=== PATIENT | female | born 1980 | race Two or more races ===

== ENCOUNTER 2016-07-01 12:25 | Outpatient (CLI) | payer MEDICAID ==
[2016-07-01 12:54] LABS: APPEARANCE,URINE SLIGHTLY-CLOUDY; BILIRUBIN,URINE NEGATIVE (NEGATIVE); GLUCOSE, URINE NEGATIVE (NEGATIVE); KETONES,URINE NEGATIVE (NEGATIVE); LEUKOCYTE ESTERASE,URINE NEGATIVE (NEGATIVE); NITRITE,URINE NEGATIVE (NEGATIVE); PROTEIN,URINE NEGATIVE (NEGATIVE); UROBILINOGEN,URINE NEGATIVE mg/dL (<2.0)
[2016-07-01 13:15] LABS: URINE BARBITURATES SCREEN NEGATIVE; URINE METHADONE SCREEN NEGATIVE; URINE PHENCYCLIDINE SCREEN NEGATIVE
--- NOTE | 2016-07-01 14:14 | Non Stress Test Report ---
Non Stress Test Datetime Report Generated by CPN: 07/01/2016 14:13 DEMOGRAPHIC EGA NST: 36.2 EGA NST: 33.1 INDICATION Indication for Study: Ordered by Provider Indication for Study: Ordered by Provider MONITORING Monitor Explained: Monitor Explained; Test Explained; Patient Verbalized Understanding Monitor Explained: Monitor Explained; Test Explained; Patient Verbalized Understanding Time on Monitor: 07/01/2016 12:42 Time on Monitor: 06/09/2016 13:12 Time off Monitor: 07/01/2016 14:05 NST Duration: 83 NST INTERVENTIONS NST Interventions: None NST Interventions: PO Hydration; IV Fluids Physician Notified NST: Morataya CNM Physician Notified NST: A Emmel BABY A: [id number] BABY A Movement : Present Movement : Present Contraction Frequency : irregular FHR Baseline : 135 Accelerations : 15X15 Accelerations : 15X15 Decelerations : None Decelerations : None Variability : Moderate 6-25bpm Variability : Moderate 6-25bpm NST Review: Meets Criteria for Reactive NST NST Review: Meets Criteria for Reactive NST NST Review and Verified By : Donald Oh RN NST Review and Verified By : Donnell Livingston RN NST Results: Reactive NST Results: Reactive NST COMMENTS NST Comments: See VS flowsheet NST REPORT Report Trigger: Send Report
== END 2016-07-01 14:13 | disposition home or self-care (01) ==
LOC: LC 12:25
PROVIDERS: ATTEND Obstetrics & Gynecology
PROC: 4A1HXCZ Monitoring of Products of Conception, Cardiac Rate, External Approach (ICD-10-PCS; principal; 2016-07-01)
DX: Z34.93 Encounter for supervision of normal pregnancy, unspecified, third trimester (principal); Z3A.36 36 weeks gestation of pregnancy
CPT/HCPCS: 59025; 80307; 81001

== ENCOUNTER 2016-07-08 13:33 | Outpatient (CLI) | payer MEDICAID ==
[2016-07-08 14:34] LABS: ABSOLUTE EOSINOPHILS # (AUTO) 0.2 10^3/uL (0.0-0.6); ABSOLUTE LYMPHOCYTES (AUTO) 1.5 10^3/uL (0.5-4.7); ABSOLUTE MONOCYTES (AUTO) 0.7 10^3/uL (0.1-1.4); ABSOLUTE NEUT (AUTO) 8.9 10^3/uL (1.7-8.2); BASOPHILS % (AUTO) 0.4 % (0-2); EOSINOPHILS % (AUTO) 1.7 % (0-6); HEMATOCRIT 32.9 % (36.0-47.0); HEMOGLOBIN 10.3 g/dL (12.0-15.5); LYMPHOCYTES % (AUTO) 13.4 % (13-45); MEAN CORPUSCULAR HGB CONC 31.2 g/dL (32.0-36.0); MEAN CORPUSCULAR VOLUME 80 fl (80-97); MONOCYTES % (AUTO) 6.2 % (3-13); RED BLOOD COUNT 4.11 10^6/uL (3.72-5.28); RED CELL DISTRIBUTION WIDTH 15.5 % (11.5-14.0); SEGMENTED NEUTROPHILS % (AUTO) 78.3 % (42-78); WHITE BLOOD COUNT 11.3 10^3/uL (4.0-10.5)
[2016-07-08 14:56] LABS: APPEARANCE,URINE SLIGHTLY-CLOUDY; BILIRUBIN,URINE NEGATIVE (NEGATIVE); GLUCOSE, URINE NEGATIVE (NEGATIVE); KETONES,URINE NEGATIVE (NEGATIVE); LEUKOCYTE ESTERASE,URINE NEGATIVE (NEGATIVE); NITRITE,URINE NEGATIVE (NEGATIVE); PROTEIN,URINE NEGATIVE (NEGATIVE); URINE SPECIFIC GRAVITY 1.011; UROBILINOGEN,URINE NEGATIVE mg/dL (<2.0)
[2016-07-08 15:08] LABS: ALANINE AMINOTRANSFERASE 24 U/L (9-52); ALBUMIN 3.1 g/dL (3.5-5.0); ALKALINE PHOSPHATASE 147 U/L (38-126); ANION GAP 8 (5-19); ASPARTATE AMINO TRANSFERASE 18 U/L (14-36); BILIRUBIN,TOTAL 0.3 mg/dL (0.2-1.3); BLOOD UREA NITROGEN 10 mg/dL (7-20); CALCIUM 9.1 mg/dL (8.4-10.2); CARBON DIOXIDE 20 mmol/L (22-30); CHLORIDE 109 mmol/L (98-107); CREATININE RESULT 0.51 mg/dL (0.52-1.25); GLUCOSE 86 mg/dL (75-110); LDH 431 U/L (313-618); SODIUM 137.4 mmol/L (137-145); URIC ACID 4.2 mg/dL (2.5-7.0)
[2016-07-08 15:29] LABS: URINE BARBITURATES SCREEN NEGATIVE; URINE METHADONE SCREEN NEGATIVE; URINE PHENCYCLIDINE SCREEN NEGATIVE
== END 2016-07-08 15:27 | disposition home or self-care (01) ==
LOC: LC 13:33
PROVIDERS: ATTEND Obstetrics & Gynecology
PROC: 4A1HXCZ Monitoring of Products of Conception, Cardiac Rate, External Approach (ICD-10-PCS; principal; 2016-07-08)
DX: Z34.93 Encounter for supervision of normal pregnancy, unspecified, third trimester (principal); Z3A.37 37 weeks gestation of pregnancy
CPT/HCPCS: 36415; 59025; 80053; 80307; 81001; 83615; 84550; 85025

== ENCOUNTER 2016-07-12 07:14 | Inpatient (IN) | payer MEDICAID ==
[2016-07-12] MEDS ORDERED: RINGERS SOLUTION,LACTATED 1,000 ML IV PRN (07:58)
[2016-07-12] MEDS ORDERED: RINGERS SOLUTION,LACTATED 1,000 ML IV ONE (07:58)
--- NOTE | 2016-07-12 08:01 | L&D Flow Sheet ---
LD Flowsheet Datetime Report Generated by CPN: 07/12/2016 08:00 Datetime: 07/12/2016 07:36 Dilatation (cm): 3.0 (Sylvie Christiane, RN) Effacement (%): 80 (Sylvie Christiane, RN) Station: 0 (Sylvie Christiane, RN) Exam by: A. Christiane RN (Sylvie Christiane, RN) Datetime: 07/12/2016 07:35 Frequency (min): 4-5 (Elisabet Bellavance, RNC) Vaginal Bleeding: None (Elisabet Bellavance, RNC) Level of Consciousness: Fully Conscious (Elisabet Bellavance, RNC) DTR's/Clonus: DTRs 2+; No Clonus (Elisabet Bellavance, RNC) Headache: Denies (Elisabet Bellavance, RNC) Breath Sounds, Left: Clear and Equal (Elisabet Bellavance, RNC) Breath Sounds, Right: Clear and Equal (Elisabet Bellavance, RNC) Nausea/Vomiting: Denies (Elisabet Bellavance, RNC) RUQ Epigastric Pain: Denies (Elisabet Bellavance, RNC) Datetime: 07/12/2016 07:34 IV/Blood Work: IV Started (Mike Oh RN) Patient Care Comments: 18G Started R forearm, good blood return, site wnl, IV infuses well LR (Mike Oh RN) Datetime: 07/12/2016 07:31 NBP Sys/Adela/Mean (mmHg): 126 (QS system process) : 85 (QS system process) : 101 (QS system process) Pulse: 89 (QS system process) LaborFlag: Antepartum (QS system process)
[2016-07-12 08:45] LABS: HEMOGLOBIN 10.6 g/dL (12.0-15.5); HGB HCT DIFFERENCE -2.2; MEAN CORPUSCULAR HEMOGLOBIN 24.7 pg (27.0-33.4); MEAN CORPUSCULAR HGB CONC 31.2 g/dL (32.0-36.0); MEAN CORPUSCULAR VOLUME 79 fl (80-97); RED CELL DISTRIBUTION WIDTH 15.9 % (11.5-14.0); WHITE BLOOD COUNT 13.8 10^3/uL (4.0-10.5)
[2016-07-12 09:08] LABS: ANISOCYTOSIS SLIGHT; BAND NEUTROPHILS % (MANUAL) 1 % (3-5); BASOPHILS % (MANUAL) 0 % (0-2); EOSINOPHILS % (MANUAL) 1 % (0-6); LYMPHOCYTES % (MANUAL) 12 % (13-45); MICROCYTOSIS SLIGHT; OVALOCYTES SLIGHT; POIKILOCYTOSIS SLIGHT; POLYCHROMASIA SLIGHT; TOTAL CELLS COUNTED 100
[2016-07-12] MEDS ORDERED: EPHEDRINE SULFATE INJ 50 MG/1 ML AMPULE ONE (09:11)
[2016-07-12] MEDS ORDERED: FENTANYL/BUPIVACAINE/NS/PF 200 MCG/100 ML RTUINJ EPI ONE (09:11)
[2016-07-12] MEDS ORDERED: BUPIVACAINE HCL 0.25 % INJ/PF (2.5 MG/1 ML) 30 ML VIAL ONE (09:12)
[2016-07-12] MEDS ORDERED: MISOPROSTOL 0.2 MG TABLET ONE (10:37)
[2016-07-12] MEDS ORDERED: OXYTOCIN/NORMAL SALINE 20 UNIT/1,000 ML RTUINJ ONE (10:37)
[2016-07-12] MEDS ORDERED: LIDOCAINE 1% INJ-PF (10 MG/ML) 30 ML SDV ONE (10:37)
--- NOTE | 2016-07-12 12:00 | L&D Flow Sheet ---
LD Flowsheet Datetime Report Generated by CPN: 07/12/2016 12:00 Datetime: 07/12/2016 11:58 NBP Sys/Adela/Mean (mmHg): 128 (QS system process) : 72 (QS system process) : 93 (QS system process) Pulse: 102 (QS system process) LaborFlag: Antepartum (QS system process) Datetime: 07/12/2016 11:43 NBP Sys/Adela/Mean (mmHg): 121 (QS system process) : 58 (QS system process) : 84 (QS system process) Pulse: 92 (QS system process) LaborFlag: Antepartum (QS system process) Datetime: 07/12/2016 11:35 Respirations: 17 (Sylvie Christiane, RN) Pain Scale: 0 (Sylvie Christiane, RN) Pain Presence: None/Denies (Sylvie Christiane, RN) Pain Type: N/A (Sylvie Christiane, RN) LaborFlag: Antepartum (QS system process) Datetime: 07/12/2016 11:28 NBP Sys/Adela/Mean (mmHg): 142 (QS system process) : 68 (QS system process) : 98 (QS system process) Pulse: 92 (QS system process) LaborFlag: Antepartum (QS system process) Datetime: 07/12/2016 11:20 Respirations: 17 (Sylvie Christiane, RN) Pain Scale: 0 (Sylvie Christiane, RN) Pain Presence: None/Denies (Sylvie Christiane, RN) Pain Type: N/A (Sylvie Christiane, RN) LaborFlag: Antepartum (QS system process) Datetime: 07/12/2016 11:13 NBP Sys/Adela/Mean (mmHg): 126 (QS system process) : 67 (QS system process) : 90 (QS system process) Pulse: 99 (QS system process) LaborFlag: Antepartum (QS system process) Datetime: 07/12/2016 11:05 Respirations: 17 (Sylvie Christiane, RN) Temperature (F): 98.3 (Sylvie Christiane, RN) Temperature (C): 36.8 (QS system process) Pain Scale: 0 (Sylvie Christiane, RN) Pain Presence: None/Denies (Sylvie Christiane, RN) Pain Type: N/A (Sylvie Christiane, RN) LaborFlag: Antepartum (QS system process) Datetime: 07/12/2016 10:58 NBP Sys/Adela/Mean (mmHg): 119 (QS system process) : 67 (QS system process) : 87 (QS system process) Pulse: 99 (QS system process) LaborFlag: Antepartum (QS system process) Datetime: 07/12/2016 10:50 Respirations: 16 (Sylvie Christiane, RN) Pain Scale: 0 (Sylvie Christiane, RN) Pain Presence: None/Denies (Sylvie Christiane, RN) LaborFlag: Antepartum (QS system process) Datetime: 07/12/2016 10:43 NBP Sys/Adela/Mean (mmHg): 118 (QS system process) : 69 (QS system process) : 88 (QS system process) Pulse: 118 (QS system process) LaborFlag: Antepartum (QS system process) Datetime: 07/12/2016 10:36 Pushing: Urge to Push (Sylvie Grande RN) Pushing Position: Pushing with Contractions (Sylvie Grande RN) Pushing Progress: Descent with Pushing (Sylvie Grande, RN) Datetime: 07/12/2016 10:33 Dilatation (cm): 10.0 (Sylvie Grande RN) Effacement (%): 100 (Sylvie Grande RN) Station: 0 (Sylvie Grande RN) Exam by: A. Emmel CNM (Sylvie Christiane, RN) Datetime: 07/12/2016 10:30 NBP Sys/Adela/Mean (mmHg): 120 (QS system process) : 67 (QS system process) : 87 (QS system process) Pulse: 96 (QS system process) LaborFlag: Antepartum (QS system process) Datetime: 07/12/2016 10:29 Patient Position/Activity: Left Lateral (Sylvie Christiane, RN) Datetime: 07/12/2016 10:15 Patient Position/Activity: Right Lateral (Sylvie Christiane, RN) Datetime: 07/12/2016 10:14 NBP Sys/Adela/Mean (mmHg): 117 (QS system process) : 68 (QS system process) : 87 (QS system process) Pulse: 90 (QS system process) LaborFlag: Antepartum (QS system process) Datetime: 07/12/2016 09:59 NBP Sys/Adela/Mean (mmHg): 120 (QS system process) : 72 (QS system process) : 93 (QS system process) Pulse: 91 (QS system process) LaborFlag: Antepartum (QS system process) Datetime: 07/12/2016 09:53 Patient Position/Activity: Left Extreme (Sylvie Christiane, RN) Communication: RN at Bedside (Sylvie Christiane, RN) Datetime: 07/12/2016 09:45 Monitor Mode: External; Palpation (Sylvie Christiane, RN) Frequency (min): 2-3 (Sylvie Christiane, RN) Quality: Moderate to Strong (Sylvie Christiane, RN) Duration (sec): 60-90 (Sylvie Christiane, RN) Resting Tone (Palpate): Relaxed (Sylvie Christiane, RN) Monitor Mode: External US (Sylvie Christiane, RN) FHR Baseline Rate : 140 (Sylvie Christiane, RN) Variability: Minimal - Undetectable to <=5 bpm (Sylvie Christiane, RN) Accelerations: None (Sylvie Christiane, RN) Decelerations: Early (Sylvie Christiane, RN) Datetime: 07/12/2016 09:43 NBP Sys/Adela/Mean (mmHg): 107 (QS system process) : 60 (QS system process) : 79 (QS system process) Pulse: 97 (QS system process) Pain Scale: 1 (Sylvie Grande RN) Pain Presence: Intermittent (Sylvie Grande RN) Pain Type: Contraction (Sylvie Grande RN) Pain Relief Measures: Epidural Given (Sylvie Gradne RN) LaborFlag: Antepartum (QS system process) Datetime: 07/12/2016 09:41 NBP Sys/Adela/Mean (mmHg): 113 (QS system process) : 67 (QS system process) : 85 (QS system process) LaborFlag: Antepartum (QS system process) Datetime: 07/12/2016 09:40 NBP Sys/Adela/Mean (mmHg): 119 (QS system process) : 64 (QS system process) : 85 (QS system process) Pulse: 96 (QS system process) I/O Interventions: Whitt Cath Inserted (Sylvie Grande RN) Patient Care Comments: draining clear yellow urine without difficulty, pt tolerated procedure well (Sylvie Grande RN) LaborFlag: Antepartum (QS system process) Datetime: 07/12/2016 09:39 NBP Sys/Adela/Mean (mmHg): 123 (QS system process) NBP Sys/Adela/Mean (mmHg): 126 (QS system process) : 67 (QS system process) : 61 (QS system process) : 83 (QS system process) : 87 (QS system process) Pulse: 90 (QS system process) Pulse: 97 (QS system process) LaborFlag: Antepartum (QS system process) Datetime: 07/12/2016 09:37 NBP Sys/Adela/Mean (mmHg): 131 (QS system process) : 70 (QS system process) : 95 (QS system process) Pulse: 91 (QS system process) Epidural Procedure Other: Pump Started (Ronit Vitrano, RN) LaborFlag: Antepartum (QS system process) Datetime: 07/12/2016 09:36 NBP Sys/Adela/Mean (mmHg): 121 (QS system process) : 62 (QS system process) : 87 (QS system process) Pulse: 97 (QS system process) Anesthesia Level Check: T9 (Ronit Vitrano, RN) LaborFlag: Antepartum (QS system process) Datetime: 07/12/2016 09:35 NBP Sys/Adela/Mean (mmHg): 133 (QS system process) : 64 (QS system process) : 91 (QS system process) Pulse: 105 (QS system process) LaborFlag: Antepartum (QS system process) Datetime: 07/12/2016 09:34 NBP Sys/Adela/Mean (mmHg): 147 (QS system process) : 70 (QS system process) : 101 (QS system process) Pulse: 100 (QS system process) LaborFlag: Antepartum (QS system process) Datetime: 07/12/2016 09:33 Monitor Interventions for UA: [place] Adjusted (Ronit Vitrano, RN) Monitor Interventions for FHR: Ultrasound Adjusted (Ronit Vitrano, RN) Patient Position/Activity: Left Tilt; Low Fowlers (Ronit Vitrano, RN) Datetime: 07/12/2016 09:32 NBP Sys/Adela/Mean (mmHg): 145 (QS system process) : 82 (QS system process) : 106 (QS system process) Pulse: 102 (QS system process) LaborFlag: Antepartum (QS system process) Datetime: 07/12/2016 09:31 NBP Sys/Adela/Mean (mmHg): 138 (QS system process) : 81 (QS system process) : 105 (QS system process) Pulse: 97 (QS system process) LaborFlag: Antepartum (QS system process) Datetime: 07/12/2016 09:30 NBP Sys/Adela/Mean (mmHg): 138 (QS system process) : 75 (QS system process) : 100 (QS system process) Pulse: 97 (QS system process) Monitor Mode: External (Sylvie Christiane, RN) Frequency (min): 2-5 (Sylvie Christiane, RN) Quality: Moderate (Sylvie Christiane, RN) Duration (sec): 60-90 (Sylvie Christiane, RN) Resting Tone (Palpate): Relaxed (Sylvie Christiane, RN) Monitor Mode: External US (Sylvie Christiane, RN) FHR Baseline Rate : 135 (Sylvie Christiane, RN) Variability: Moderate 6-25 bpm (Sylvie Christiane, RN) Accelerations: 15X15 (Sylvie Christiane, RN) Decelerations: None (Sylvie Christiane, RN) LaborFlag: Antepartum (QS system process) Datetime: 07/12/2016 09:29 NBP Sys/Adela/Mean (mmHg): 143 (QS system process) : 77 (QS system process) : 101 (QS system process) Pulse: 105 (QS system process) Anesthesia Plans: Epidural (Ronit Vitrano, RN) Epidural Procedure: Cath Placed (Ronit Vitrano, RN) Epidural Procedure: Test Dose (Ronit Vitrano, RN) LaborFlag: Antepartum (QS system process) Datetime: 07/12/2016 09:28 Pulse: 111 (QS system process) SpO2 (%): 90 (QS system process) LaborFlag: Antepartum (QS system process) Datetime: 07/12/2016 09:27 Pulse: 103 (QS system process) SpO2 (%): 91 (QS system process) LaborFlag: Antepartum (QS system process) Datetime: 07/12/2016 09:23 Pulse: 104 (QS system process) SpO2 (%): 100 (QS system process) LaborFlag: Antepartum (QS system process) Datetime: 07/12/2016 09:19 Pulse: 94 (QS system process) SpO2 (%): 87 (QS system process) LaborFlag: Antepartum (QS system process) Datetime: 07/12/2016 09:18 Pulse: 95 (QS system process) SpO2 (%): 96 (QS system process) Procedure Verify: Correct Patient Identity; Correct Side and Site are Marked; Accurate Procedure Consent Form; Agreement on Procedure to be Done; Correct Patient Position; Relevant Images and Results are Properly Labeled and Displayed; Addressed Need to Administer Antibiotics or Fluids for Irrigation; Safety Precautions Based on Patient History or Medication Use (Ronit Lopez RN) Anesthesia Plans: Epidural (Ronitpercy Lopez RN) Epidural Positioning: Sitting (Ronit Lopez RN) Anesthesia Comments: Dr. Sampson at bedside for epidural (Ronitpercy Lopez, RN) LaborFlag: Antepartum (QS system process) Datetime: 07/12/2016 09:17 Comments: Monitors removed for epidural (Ronit Vitrano, RN) Datetime: 07/12/2016 09:16 Anesthesia Plans: Epidural (Ronit Jasonano, RN) Epidural Positioning: Sitting (Ronit Vitrano, RN) Datetime: 07/12/2016 09:00 Monitor Mode: External (Sylvie Christiane, RN) Frequency (min): 3-5 (Sylvie Christiane, RN) Quality: Moderate (Sylvie Christiane, RN) Duration (sec): 70-110 (Sylvie Christiane, RN) Resting Tone (Palpate): Relaxed (Sylvie Christiane, RN) Monitor Mode: External US (Sylvie Christiane, RN) FHR Baseline Rate : 130 (Sylvie Christiane, RN) Variability: Moderate 6-25 bpm (Sylvie Christiane, RN) Accelerations: 15X15 (Sylvie Christiane, RN) Decelerations: None (Sylvie Christiane, RN) Datetime: 07/12/2016 08:53 Patient Care Comments: pt assisted into rocking chair (Sylvie Christiane, RN) Datetime: 07/12/2016 08:30 Monitor Mode: External (Sylvie Christiane, RN) Frequency (min): 2-4 (Sylvie Christiane, RN) Quality: Moderate (Sylvie Christiane, RN) Duration (sec): 60-90 (Sylvie Christiane, RN) Resting Tone (Palpate): Relaxed (Sylvie Christiane, RN) Monitor Mode: External US (Sylvie Christiane, RN) FHR Baseline Rate : 130 (Sylvie Christiane, RN) Variability: Moderate 6-25 bpm (Sylvie Christiane, RN) Accelerations: 15X15 (Sylvie Christiane, RN) Decelerations: None (Sylvie Christiane, RN) Datetime: 07/12/2016 08:22 Patient Care Comments: pt back in bed with family member doing counter pressure on knees (Sylvie Christiane, RN) Datetime: 07/12/2016 08:20 Dilatation (cm): 5.0 (Sylvie Christiane, RN) Effacement (%): 90 (Sylvie Christiane, RN) Station: -1 (Sylvie Christiane, RN) Exam by: Donnell Oseguera CNM (Sylvie Christiane, RN) Datetime: 07/12/2016 08:00 Monitor Mode: External; Palpation (Sylvie Christiane, RN) Frequency (min): 2-5 (Sylvie Christiane, RN) Quality: Moderate (Sylvie Christiane, RN) Duration (sec): 60-90 (Sylvie Christiane, RN) Resting Tone (Palpate): Relaxed (Sylvie Christiane, RN) Monitor Mode: External US (Sylvie Christiane, RN) FHR Baseline Rate : 135 (Sylvie Christiane, RN) Variability: Moderate 6-25 bpm (Sylvie Christiane, RN) Accelerations: 10X10 (Sylvie Christiane, RN) Decelerations: None (Sylvie Christiane, RN)
--- NOTE | 2016-07-12 13:51 | Admission Physical ---
Datetime Report Generated by CPN: 07/12/2016 13:51 CURRENT ADMISSION Chief Complaint: Suspected Ruptured Membranes Indication for Induction: Not Applicable Admit Plan: Admit to Unit ALLERGIES Medication Allergies: Yes Medication Allergies: sulfamethoxazole (07/01/2016); trimethoprim (07/01/2016) Latex: No Latex Allergies OBSTETRICAL HISTORY EDC: 07/27/2016 00:00 : 4 Para: 3 Term: 3 : 0 SAB: 0 IAB: 0 Ectopic: 0 Livin Cesareans: 0 VBACs: 0 Multiple Births: 0 (Annotations: Data stored by CPN on behalf of user) Gestational Diabetes: No Rh Sensitization: No Incompetent Cervix: No LANDON: No Infertility: No ART Treatment: No Uterine Anomaly: No IUGR: No Hx Previous C/S: No Macrosomia: No Hx Loss/Stillborn: No PIH: No Hx : No Placenta Previa/Abruption: No Depression/PP Depression: Yes PTL/PROM: No Post Hemorrhage: No Current Procedures: Ultrasound Obstetrical History Comments: G1 06/27/2000 36W M Epidural [place] G2 09/25/2002 36W F Epidural [facility] G3 05/05/2008 36W F [facility] SEE RECORDS Alcohol: No Marijuana : No Cocaine: No Other Illicit Drugs: No Cigarettes: Never Smoker. [id number] MEDICAL HISTORY Diabetes: No Blood Transfusion: No Pulmonary Disease (Asthma, TB): No Breast Disease: No Hypertension: No Can Maker Surgery: No Heart Disease: No Hosp/Surgery: Yes Autoimmune Disorder: No Anesthetic Complications: No Kidney Disease: No Abnormal Pap Smear: No Neuro/Epilepsy: No Psychiatric Disorders: No Other Medical Diseases: No Hepatitis/Liver Disease: No Significant Family History: No Varicosities/Phlebitis: No Trauma/Violence : No Thyroid Dysfunction: No Medical History Comments: Gallbladder 2004 Hx Depression, Frequent UTIs INFECTIOUS HISTORY Gonorrhea: No Genital Herpes: No Chlamydia: No Tuberculosis: No Syphilis: No Hepatitis: No HIV/AIDS Exposure: No Rash or Viral Illness: No HPV: No PHYSICAL EXAM General: Normal HEENT: Normal Neurologic: Normal Thyroid: Normal Heart: Normal Lungs: Normal Breast: Normal Back: Normal Abdomen: Normal Genitourinary Exam: Normal Extremities: Normal DTRs: Normal Pelvic Type: Adequate Vital Signs: Reviewed VAGINAL EXAM Dilatation: 5 Effacement: 90 Station: -1 MEMBRANES Membranes: Ruptured Amniotic Fluid Color: Clear FETUS A EGA: 37.6 Monitoring: External US FHR- Baseline: 130 Decelerations: None Presentation: Vertex Admit Comment: 35 yo G 4P3 EGA 37.6 EDC 07/27/16 presents with SROM Pmsx- gall bladder removal Pmhx- depression abdomen nontender FHTs 130s average variability desires epidural plan of care reviewed with pt and family PLANS FOR LABOR AND DELIVERY Labor and Delivery: None Pain Management: Natural Feeding Preference: Both Benefit of Breast Feed Discussed: Yes Circumcision: N/A INFORMED CONSENT Informed Consent Obtained: Vaginal Delivery; Risks, Benefits and Alternatives Discussed Assignment: Devyn Whittaker DO Signature: with User ID: [email or web address] : with User ID: [email or web address]
[2016-07-12] MEDS ORDERED: MEASLES,MUMPS&RUBELLA VACC/PF 0.5 ML VIAL SUBCUT PRN (14:08)
[2016-07-12] MEDS ORDERED: ZOLPIDEM TARTRATE 5 MG TABLET PO PRN (14:08)
[2016-07-12] MEDS ORDERED: OXYTOCIN/NORMAL SALINE 1,000 ML IV PRN (14:08)
[2016-07-12] MEDS ORDERED: DIBUCAINE 1% OINTMENT 28 GM TP PRN (14:08)
[2016-07-12] MEDS ORDERED: DIPH/PERTUSS(ACELL)/TETANUS VAC/PF 0.5 ML SYR (>=10YO) IM PRN (14:08)
[2016-07-12] MEDS ORDERED: BENZOCAINE/MENTHOL AEROSOL SPRAY 56 ML TOP PRN (14:08)
--- NOTE | 2016-07-12 16:01 | L&D Flow Sheet ---
LD Flowsheet Datetime Report Generated by CPN: 07/12/2016 16:00 Datetime: 07/12/2016 13:45 Pain Scale: 0 (Sylvie Christiane, RN) Pain Presence: None/Denies (Sylvie Christiane, RN) Pain Type: N/A (Sylvie Christiane, RN) LaborFlag: Antepartum (QS system process) Datetime: 07/12/2016 13:28 NBP Sys/Adela/Mean (mmHg): 124 (QS system process) : 62 (QS system process) : 86 (QS system process) Pulse: 91 (QS system process) LaborFlag: Antepartum (QS system process) Datetime: 07/12/2016 13:13 NBP Sys/Adela/Mean (mmHg): 136 (QS system process) : 69 (QS system process) : 95 (QS system process) Pulse: 103 (QS system process) LaborFlag: Antepartum (QS system process) Datetime: 07/12/2016 12:58 NBP Sys/Adela/Mean (mmHg): 140 (QS system process) : 80 (QS system process) : 101 (QS system process) Pulse: 98 (QS system process) LaborFlag: Antepartum (QS system process) Datetime: 07/12/2016 12:43 NBP Sys/Adela/Mean (mmHg): 124 (QS system process) : 72 (QS system process) : 92 (QS system process) Pulse: 89 (QS system process) LaborFlag: Antepartum (QS system process) Datetime: 07/12/2016 12:40 Respirations: 17 (Sylvie Christiane, RN) Temperature (F): 98.1 (Sylvie Christiane, RN) Temperature (C): 36.7 (QS system process) Pain Scale: 0 (Sylvie Christiane, RN) Pain Presence: None/Denies (Sylvie Christiane, RN) Pain Type: N/A (Sylvie Christiane, RN) LaborFlag: Antepartum (QS system process) Datetime: 07/12/2016 12:28 NBP Sys/Adela/Mean (mmHg): 127 (QS system process) : 69 (QS system process) : 93 (QS system process) Pulse: 82 (QS system process) LaborFlag: Antepartum (QS system process) Datetime: 07/12/2016 12:20 Respirations: 17 (Sylvie Christiane, RN) Pain Scale: 0 (Sylvie Christiane, RN) Pain Presence: None/Denies (Sylvie Christiane, RN) Pain Type: N/A (Sylvie Christiane, RN) LaborFlag: Antepartum (QS system process) Datetime: 07/12/2016 12:13 NBP Sys/Adela/Mean (mmHg): 126 (QS system process) : 66 (QS system process) : 87 (QS system process) Pulse: 82 (QS system process) LaborFlag: Antepartum (QS system process)
[2016-07-12] MEDS: FERROUS SULFATE 325 MG TABLET PO SCH (17:23)
[2016-07-12] MEDS: DOCUSATE SODIUM 100 MG CAPSULE PO SCH (17:23)
--- NOTE | 2016-07-12 19:02 | L&D Flow Sheet ---
LD Flowsheet Datetime Report Generated by CPN: 07/12/2016 19:00 Datetime: 07/12/2016 13:45 Pain Scale: 0 (Sylvie Christiane, RN) Pain Presence: None/Denies (Sylvie Christiane, RN) Pain Type: N/A (Sylvie Christiane, RN) LaborFlag: Antepartum (QS system process) Datetime: 07/12/2016 13:28 NBP Sys/Adela/Mean (mmHg): 124 (QS system process) : 62 (QS system process) : 86 (QS system process) Pulse: 91 (QS system process) LaborFlag: Antepartum (QS system process) Datetime: 07/12/2016 13:13 NBP Sys/Adela/Mean (mmHg): 136 (QS system process) : 69 (QS system process) : 95 (QS system process) Pulse: 103 (QS system process) LaborFlag: Antepartum (QS system process) Datetime: 07/12/2016 12:58 NBP Sys/Adela/Mean (mmHg): 140 (QS system process) : 80 (QS system process) : 101 (QS system process) Pulse: 98 (QS system process) LaborFlag: Antepartum (QS system process) Datetime: 07/12/2016 12:43 NBP Sys/Adela/Mean (mmHg): 124 (QS system process) : 72 (QS system process) : 92 (QS system process) Pulse: 89 (QS system process) LaborFlag: Antepartum (QS system process) Datetime: 07/12/2016 12:40 Respirations: 17 (Sylvie Christiane, RN) Temperature (F): 98.1 (Sylvie Christiane, RN) Temperature (C): 36.7 (QS system process) Pain Scale: 0 (Sylvie Christiane, RN) Pain Presence: None/Denies (Sylvie Christiane, RN) Pain Type: N/A (Sylvie Christiane, RN) LaborFlag: Antepartum (QS system process) Datetime: 07/12/2016 12:28 NBP Sys/Adela/Mean (mmHg): 127 (QS system process) : 69 (QS system process) : 93 (QS system process) Pulse: 82 (QS system process) LaborFlag: Antepartum (QS system process) Datetime: 07/12/2016 12:20 Respirations: 17 (Sylvie Christiane, RN) Pain Scale: 0 (Sylvie Christiane, RN) Pain Presence: None/Denies (Sylvie Christiane, RN) Pain Type: N/A (Sylvie Christiane, RN) LaborFlag: Antepartum (QS system process) Datetime: 07/12/2016 12:13 NBP Sys/Adela/Mean (mmHg): 126 (QS system process) : 66 (QS system process) : 87 (QS system process) Pulse: 82 (QS system process) LaborFlag: Antepartum (QS system process) Datetime: 07/12/2016 11:58 NBP Sys/Adela/Mean (mmHg): 128 (QS system process) : 72 (QS system process) : 93 (QS system process) Pulse: 102 (QS system process) LaborFlag: Antepartum (QS system process) Datetime: 07/12/2016 11:50 Respirations: 16 (Sylvie Christiane, RN) Pain Scale: 0 (Sylvie Christiane, RN) Pain Presence: None/Denies (Sylvie Christiane, RN) Pain Type: N/A (Sylvie Christiane, RN) LaborFlag: Antepartum (QS system process) Datetime: 07/12/2016 11:43 NBP Sys/Adela/Mean (mmHg): 121 (QS system process) : 58 (QS system process) : 84 (QS system process) Pulse: 92 (QS system process) LaborFlag: Antepartum (QS system process) Datetime: 07/12/2016 11:35 Respirations: 17 (Sylvie Christiane, RN) Pain Scale: 0 (Sylvie Christiane, RN) Pain Presence: None/Denies (Sylvie Christiane, RN) Pain Type: N/A (Sylvie Christiane, RN) LaborFlag: Antepartum (QS system process) Datetime: 07/12/2016 11:28 NBP Sys/Adela/Mean (mmHg): 142 (QS system process) : 68 (QS system process) : 98 (QS system process) Pulse: 92 (QS system process) LaborFlag: Antepartum (QS system process) Datetime: 07/12/2016 11:20 Respirations: 17 (Sylvie Christiane, RN) Pain Scale: 0 (Sylvie Christiane, RN) Pain Presence: None/Denies (Sylvie Christiane, RN) Pain Type: N/A (Sylvie Christiane, RN) LaborFlag: Antepartum (QS system process) Datetime: 07/12/2016 11:13 NBP Sys/Adela/Mean (mmHg): 126 (QS system process) : 67 (QS system process) : 90 (QS system process) Pulse: 99 (QS system process) LaborFlag: Antepartum (QS system process) Datetime: 07/12/2016 11:05 Respirations: 17 (Sylvie Christiane, RN) Temperature (F): 98.3 (Sylvie Christiane, RN) Temperature (C): 36.8 (QS system process) Pain Scale: 0 (Sylvie Christiane, RN) Pain Presence: None/Denies (Sylvie Christiane, RN) Pain Type: N/A (Sylvie Christiane, RN) LaborFlag: Antepartum (QS system process) Datetime: 07/12/2016 10:58 NBP Sys/Adela/Mean (mmHg): 119 (QS system process) : 67 (QS system process) : 87 (QS system process) Pulse: 99 (QS system process) LaborFlag: Antepartum (QS system process) Datetime: 07/12/2016 10:50 Respirations: 16 (Sylvie Christiane, RN) Pain Scale: 0 (Sylvie Christiane, RN) Pain Presence: None/Denies (Sylvie Christiane, RN) LaborFlag: Antepartum (QS system process) Datetime: 07/12/2016 10:45 Monitor Mode: External (Sylvie Christiane, RN) Frequency (min): 1-3 (Sylvie Christiane, RN) Quality: Moderate to Strong (Sylvie Christiane, RN) Duration (sec): 60-90 (Sylvie Christiane, RN) Resting Tone (Palpate): Relaxed (Sylvie Christiane, RN) Comments: unable to determine due to pt pushing (Sylvie Christiane, RN) Datetime: 07/12/2016 10:43 NBP Sys/Adela/Mean (mmHg): 118 (QS system process) : 69 (QS system process) : 88 (QS system process) Pulse: 118 (QS system process) LaborFlag: Antepartum (QS system process) Datetime: 07/12/2016 10:36 Pushing: Urge to Push (Sylvie Christiane, RN) Pushing Position: Pushing with Contractions (Sylvie Christiane, RN) Pushing Progress: Descent with Pushing (Sylvie Grande, RN) Datetime: 07/12/2016 10:33 Dilatation (cm): 10.0 (Sylvie Grande, RN) Effacement (%): 100 (Sylvie Grande, RN) Station: 0 (Sylvie Grande, RN) Exam by: Donnell Oseguera CNM (Sylvie Grande, RN) Stage 2 Comments: RN and CNM remain at bedside assessing FHTs while pt pushing (Sylvie Grande, RN) Datetime: 07/12/2016 10:30 NBP Sys/Adela/Mean (mmHg): 120 (QS system process) : 67 (QS system process) : 87 (QS system process) Pulse: 96 (QS system process) Monitor Mode: External (Sylvie Grande RN) Frequency (min): 2-3 (Sylvie Grande, RN) Quality: Moderate to Strong (Sylvie Grande, RN) Duration (sec): 50-80 (Sylvie Grande, RN) Resting Tone (Palpate): Relaxed (Sylvie Christiane, RN) Monitor Mode: External US (Sylvie Christiane, RN) FHR Baseline Rate : 150 (Sylvie Christiane, RN) Variability: Minimal - Undetectable to <=5 bpm (Sylvie Christiane, RN) Accelerations: None (Sylvie Christiane, RN) Decelerations: Late (Sylvie Christiane, RN) LaborFlag: Antepartum (QS system process) Datetime: 07/12/2016 10:29 Patient Position/Activity: Left Lateral (Sylvie Christiane, RN) Datetime: 07/12/2016 10:15 Monitor Mode: External (Sylvie Christiane, RN) Frequency (min): 2 (Sylvie Christiane, RN) Quality: Moderate (Sylvie Christiane, RN) Duration (sec): 80-100 (Sylvie Christiane, RN) Resting Tone (Palpate): Relaxed (Sylvie Christiane, RN) Monitor Mode: External US (Sylvie Christiane, RN) FHR Baseline Rate : 150 (Sylvie Christiane, RN) Variability: Minimal - Undetectable to <=5 bpm (Sylvie Christiane, RN) Accelerations: None (Sylvie Christiane, RN) Decelerations: Early; Late (Sylvie Christiane, RN) Patient Position/Activity: Right Lateral (Sylvie Christiane, RN) Datetime: 07/12/2016 10:14 NBP Sys/Adela/Mean (mmHg): 117 (QS system process) : 68 (QS system process) : 87 (QS system process) Pulse: 90 (QS system process) LaborFlag: Antepartum (QS system process) Datetime: 07/12/2016 10:03 Patient Position/Activity: Right Extreme (Sylvie Christiane, RN) Datetime: 07/12/2016 10:00 Monitor Mode: External (Sylvie Christiane, RN) Frequency (min): 1-3 (Sylvie Christiane, RN) Quality: Moderate to Strong (Sylvie Christiane, RN) Duration (sec): 60-90 (Sylvie Christiane, RN) Resting Tone (Palpate): Relaxed (Sylvie Christiane, RN) Monitor Mode: External US (Sylvie Christiane, RN) FHR Baseline Rate : 140 (Sylvie Christiane, RN) Variability: Minimal - Undetectable to <=5 bpm (Sylvie Christiane, RN) Accelerations: None (Sylvie Christiane, RN) Decelerations: Late (Sylvie Christiane, RN) Datetime: 07/12/2016 09:59 NBP Sys/Adela/Mean (mmHg): 120 (QS system process) : 72 (QS system process) : 93 (QS system process) Pulse: 91 (QS system process) LaborFlag: Antepartum (QS system process) Datetime: 07/12/2016 09:53 Patient Position/Activity: Left Extreme (Sylvie Christiane, RN) Communication: RN at Bedside (Sylvie Christiane, RN) Datetime: 07/12/2016 09:45 Monitor Mode: External; Palpation (Sylvie Christiane, RN) Frequency (min): 2-3 (Sylvie Christiane, RN) Quality: Moderate to Strong (Sylvie Christiane, RN) Duration (sec): 60-90 (Sylvie Christiane, RN) Resting Tone (Palpate): Relaxed (Sylvie Christiane, RN) Monitor Mode: External US (Sylvie Christiane, RN) FHR Baseline Rate : 140 (Sylvie Christiane, RN) Variability: Minimal - Undetectable to <=5 bpm (Sylvie Christiane, RN) Accelerations: None (Sylvie Christiane, RN) Decelerations: Early (Sylvie Christiane, RN) Datetime: 07/12/2016 09:43 NBP Sys/Adela/Mean (mmHg): 107 (QS system process) : 60 (QS system process) : 79 (QS system process) Pulse: 97 (QS system process) Pain Scale: 1 (Sylvie Christiane, RN) Pain Presence: Intermittent (Sylvie Grande RN) Pain Type: Contraction (Sylvie Grande RN) Pain Relief Measures: Epidural Given (Sylvie Grande RN) LaborFlag: Antepartum (QS system process) Datetime: 07/12/2016 09:41 NBP Sys/Adela/Mean (mmHg): 113 (QS system process) : 67 (QS system process) : 85 (QS system process) LaborFlag: Antepartum (QS system process) Datetime: 07/12/2016 09:40 NBP Sys/Adela/Mean (mmHg): 119 (QS system process) : 64 (QS system process) : 85 (QS system process) Pulse: 96 (QS system process) I/O Interventions: Wihtt Cath Inserted (Sylvie Grande RN) Patient Care Comments: draining clear yellow urine without difficulty, pt tolerated procedure well (Sylvie Grande RN) LaborFlag: Antepartum (QS system process) Datetime: 07/12/2016 09:39 NBP Sys/Adela/Mean (mmHg): 123 (QS system process) NBP Sys/Adela/Mean (mmHg): 126 (QS system process) : 67 (QS system process) : 61 (QS system process) : 83 (QS system process) : 87 (QS system process) Pulse: 90 (QS system process) Pulse: 97 (QS system process) LaborFlag: Antepartum (QS system process) Datetime: 07/12/2016 09:37 NBP Sys/Adela/Mean (mmHg): 131 (QS system process) : 70 (QS system process) : 95 (QS system process) Pulse: 91 (QS system process) Epidural Procedure Other: Pump Started (Ronit Vitrano, RN) LaborFlag: Antepartum (QS system process) Datetime: 07/12/2016 09:36 NBP Sys/Adela/Mean (mmHg): 121 (QS system process) : 62 (QS system process) : 87 (QS system process) Pulse: 97 (QS system process) Anesthesia Level Check: T9 (Ronit Vitrano, RN) LaborFlag: Antepartum (QS system process) Datetime: 07/12/2016 09:35 NBP Sys/Adela/Mean (mmHg): 133 (QS system process) : 64 (QS system process) : 91 (QS system process) Pulse: 105 (QS system process) LaborFlag: Antepartum (QS system process) Datetime: 07/12/2016 09:34 NBP Sys/Adela/Mean (mmHg): 147 (QS system process) : 70 (QS system process) : 101 (QS system process) Pulse: 100 (QS system process) LaborFlag: Antepartum (QS system process) Datetime: 07/12/2016 09:33 Monitor Interventions for UA: [place] Adjusted (Ronit Vitrano, RN) Monitor Interventions for FHR: Ultrasound Adjusted (Ronit Vitrano, RN) Patient Position/Activity: Left Tilt; Low Fowlers (Ronit Vitrano, RN) Datetime: 07/12/2016 09:32 NBP Sys/Adela/Mean (mmHg): 145 (QS system process) : 82 (QS system process) : 106 (QS system process) Pulse: 102 (QS system process) LaborFlag: Antepartum (QS system process) Datetime: 07/12/2016 09:31 NBP Sys/Adela/Mean (mmHg): 138 (QS system process) : 81 (QS system process) : 105 (QS system process) Pulse: 97 (QS system process) LaborFlag: Antepartum (QS system process) Datetime: 07/12/2016 09:30 NBP Sys/Adela/Mean (mmHg): 138 (QS system process) : 75 (QS system process) : 100 (QS system process) Pulse: 97 (QS system process) Monitor Mode: External (Sylvie Christiane, RN) Frequency (min): 2-5 (Sylvie Christiane, RN) Quality: Moderate (Sylvie Christiane, RN) Duration (sec): 60-90 (Sylvie Christiane, RN) Resting Tone (Palpate): Relaxed (Sylvie Christiane, RN) Monitor Mode: External US (Sylvie Christiane, RN) FHR Baseline Rate : 135 (Sylvie Christiane, RN) Variability: Moderate 6-25 bpm (Sylvie Christiane, RN) Accelerations: 15X15 (Sylvie Christiane, RN) Decelerations: None (Sylvie Christiane, RN) LaborFlag: Antepartum (QS system process) Datetime: 07/12/2016 09:29 NBP Sys/Adela/Mean (mmHg): 143 (QS system process) : 77 (QS system process) : 101 (QS system process) Pulse: 105 (QS system process) Anesthesia Plans: Epidural (Ronit Vitrano, RN) Epidural Procedure: Cath Placed (Ronit Vitrano, RN) Epidural Procedure: Test Dose (Ronit Vitrano, RN) LaborFlag: Antepartum (QS system process) Datetime: 07/12/2016 09:28 Pulse: 111 (QS system process) SpO2 (%): 90 (QS system process) LaborFlag: Antepartum (QS system process) Datetime: 07/12/2016 09:27 Pulse: 103 (QS system process) SpO2 (%): 91 (QS system process) LaborFlag: Antepartum (QS system process) Datetime: 07/12/2016 09:23 Pulse: 104 (QS system process) SpO2 (%): 100 (QS system process) LaborFlag: Antepartum (QS system process) Datetime: 07/12/2016 09:19 Pulse: 94 (QS system process) SpO2 (%): 87 (QS system process) LaborFlag: Antepartum (QS system process) Datetime: 07/12/2016 09:18 Pulse: 95 (QS system process) SpO2 (%): 96 (QS system process) Procedure Verify: Correct Patient Identity; Correct Side and Site are Marked; Accurate Procedure Consent Form; Agreement on Procedure to be Done; Correct Patient Position; Relevant Images and Results are Properly Labeled and Displayed; Addressed Need to Administer Antibiotics or Fluids for Irrigation; Safety Precautions Based on Patient History or Medication Use (Ronit Lopez, RN) Anesthesia Plans: Epidural (Ronit Vitrano, RN) Epidural Positioning: Sitting (Ronit Jessica, RN) Anesthesia Comments: Dr. Sampson at bedside for epidural (Ronit Jessica, RN) LaborFlag: Antepartum (QS system process) Datetime: 07/12/2016 09:17 Comments: Monitors removed for epidural (Ronit Vitrano, RN) Datetime: 07/12/2016 09:16 Anesthesia Plans: Epidural (Ronit Jasonano, RN) Epidural Positioning: Sitting (Ronit Jasonano, RN) Datetime: 07/12/2016 09:00 Monitor Mode: External (Sylvie Christiane, RN) Frequency (min): 3-5 (Sylvie Christiane, RN) Quality: Moderate (Sylvie Christiane, RN) Duration (sec): 70-110 (Sylvie Christiane, RN) Resting Tone (Palpate): Relaxed (Sylvie Christiane, RN) Monitor Mode: External US (Sylvie Christiane, RN) FHR Baseline Rate : 130 (Sylvie Christiane, RN) Variability: Moderate 6-25 bpm (Sylvie Christiane, RN) Accelerations: 15X15 (Sylvie Christiane, RN) Decelerations: None (Sylvie Christiane, RN) Datetime: 07/12/2016 08:53 Patient Care Comments: pt assisted into rocking chair (Sylvie Christiane, RN) Datetime: 07/12/2016 08:30 Monitor Mode: External (Sylvie Christiane, RN) Frequency (min): 2-4 (Sylvie Christiane, RN) Quality: Moderate (Sylvie Christiane, RN) Duration (sec): 60-90 (Sylvie Christiane, RN) Resting Tone (Palpate): Relaxed (Sylvie Christiane, RN) Monitor Mode: External US (Sylvie Christiane, RN) FHR Baseline Rate : 130 (Sylvie Christiane, RN) Variability: Moderate 6-25 bpm (Sylvie Christiane, RN) Accelerations: 15X15 (Sylvie Christiane, RN) Decelerations: None (Sylvie Christiane, RN) Datetime: 07/12/2016 08:22 Patient Care Comments: pt back in bed with family member doing counter pressure on knees (Sylvie Christiane, RN) Datetime: 07/12/2016 08:20 Dilatation (cm): 5.0 (Sylvie Christiane, RN) Effacement (%): 90 (Sylvie Christiane, RN) Station: -1 (Sylvie Christiane, RN) Exam by: A. Emmel CNM (Sylvie Christiane, RN) Datetime: 07/12/2016 08:00 Monitor Mode: External; Palpation (Sylvie Christiane, RN) Frequency (min): 2-5 (Sylvie Christiane, RN) Quality: Moderate (Sylvie Christiane, RN) Duration (sec): 60-90 (Sylvie Christiane, RN) Resting Tone (Palpate): Relaxed (Sylvie Christiane, RN) Monitor Mode: External US (Sylvie Christiane, RN) FHR Baseline Rate : 135 (Sylvie Christiane, RN) Variability: Moderate 6-25 bpm (Sylvie Christiane, RN) Accelerations: 10X10 (Sylvie Christiane, RN) Decelerations: None (Sylvie Christiane, RN) Datetime: 07/12/2016 07:59 Pain Assessment Comments: pt assisted into rocking chair (Sylvie Christiane, RN) LaborFlag: Antepartum (QS system process) Datetime: 07/12/2016 07:36 Dilatation (cm): 3.0 (Sylvie Christiane, RN) Effacement (%): 80 (Sylvie Christiane, RN) Station: 0 (Sylvie Christiane, RN) Exam by: A. Christiane RN (Sylvie Christiane, RN) Datetime: 07/12/2016 07:35 Frequency (min): 4-5 (Elisabet Bellavance, RNC) Vaginal Bleeding: None (Elisabet Bellavance, RNC) Level of Consciousness: Fully Conscious (Elisabet Bellavance, RNC) DTR's/Clonus: DTRs 2+; No Clonus (Elisabet Bellavance, RNC) Headache: Denies (Elisabet Bellavance, RNC) Breath Sounds, Left: Clear and Equal (Elisabet Bellavance, RNC) Breath Sounds, Right: Clear and Equal (Elisabet Bellavance, RNC) Nausea/Vomiting: Denies (Elisabet Bellavance, RNC) RUQ Epigastric Pain: Denies (Elisabet Bellavance, RNC) Datetime: 07/12/2016 07:34 IV/Blood Work: IV Started (Mike Oh RN) Patient Care Comments: 18G Started R forearm, good blood return, site wnl, IV infuses well LR (Mike Oh RN) Datetime: 07/12/2016 07:31 NBP Sys/Adela/Mean (mmHg): 126 (QS system process) : 85 (QS system process) : 101 (QS system process) Pulse: 89 (QS system process) LaborFlag: Antepartum (QS system process)
[2016-07-12] MEDS ORDERED: ACETAMINOPHEN WITH CODEINE #3 TABLET PO PRN ×2 (19:46→19:47)
[2016-07-12] MEDS: IBUPROFEN 800 MG TABLET PO SCH (21:36)
[2016-07-13] MEDS: IBUPROFEN 800 MG TABLET PO SCH ×3 (05:14→21:12)
--- NOTE | 2016-07-13 06:25 | L&D Current Admission ---
Current Admit Datetime Report Generated by CPN: 07/13/2016 06:00 ADMISSION INFORMATION Current Admit Date/Time: 07/12/2016 07:32 (07/12/2016 07:32:LUISA Sandhu) Reason for Admission: Rupture of Membranes (07/12/2016 07:32:LUISA Sandhu) Other Reason for Admission: srom at 0635 for clear fluid (07/12/2016 07:32:LUISA Sandhu) Chief Complaint: Suspected Rupture of Membranes (07/12/2016 07:35:LUISA Sandhu) Medications During : Vitamin (07/12/2016 07:25:Sylvie Grande RN) EGA per Dates: 37.6 (07/12/2016 07:32:QS system process) Method of Arrival: Wheelchair (07/12/2016 07:32:LUISA Sandhu) Admitted From: Home (07/12/2016 07:32:LUISA Sandhu) Reason for Induction: Not Applicable (07/12/2016 07:32:LUISA Sandhu) Records Available: Yes (07/12/2016 07:32:LUISA Sandhu) General Admission Information: Reviewed (07/12/2016 07:32:LUISA Sandhu) BELONGINGS/ADVANCED DIRECTIVES Valuables/Personal Effects: None (07/12/2016 07:32:LUISA Sandhu) Other Belongings: see signed belongings consent (07/12/2016 07:25:Sylvie Grande RN) Disposition of Belongings: Kept with Patient (07/12/2016 07:32:LUISA Sandhu) Advance Direct for Healthcare: No, and Wants No Information (07/12/2016 07:32:LUISA Sandhu) Durable Power of Creative Producer: No (07/12/2016 07:32:LUISA Sandhu) Living Will: No (07/12/2016 07:32:LUISA Sandhu) Organ Donor: Yes (07/12/2016 07:32:LUISA Sandhu) Pt Rights Information Given: Yes (07/12/2016 07:32:LUISA Sandhu) Pt Understands Pt Rights: Yes (07/12/2016 07:32:LUISA Sandhu) LEARNING ASSESSMENT Knowledge Level: Understands L_D Process; Understands Care Activities; Had Pre-Hospital Education (07/12/2016 07:32:LUISA Sandhu) Barriers to Learning: Visual Deficit (07/12/2016 07:32:LUISA Sandhu) Learning Readiness: Motivated (07/12/2016 07:32:LUISA Sandhu) Learns Best By: 1 to 1 Instruction; Reading; Videos; Group Discussion; Demonstration (07/12/2016 07:32:LUISA Sandhu) Learning Needs: Labor and Delivery Process; Pain Management; Symptoms to Report; Treatment Plan; Medication; Diagnosis; Nutrition; Equipment; Infant Care; Community Resources (07/12/2016 07:32:LUISA Sandhu) DOMESTIC VIOLANCE SCREENING Dom Viol Threatened/Hurt: No (07/12/2016 07:32:LUISA Sandhu) Hx of Abuse/Neglect past 2yrs: No (07/12/2016 07:32:LUISA Sandhu) Feel Unsafe Going Home: No (07/12/2016 07:32:LUISA Sandhu) Addt'l Observ Indicating Abuse: No (07/12/2016 07:32:LUISA Sandhu) Considered Personal Harm/Suicide: No (07/12/2016 07:32:LUISA Sandhu) NUTRITIONAL/FUNCTIONAL SCREENING Problem with Appetite >5 Days: No (07/12/2016 07:32:LUISA Sandhu) Chew/Swallow Difficulties: No (07/12/2016 07:32:LUISA Sandhu) Inappropriate Wt Gain/Loss: No (07/12/2016 07:32:LUISA Sandhu) Presence Skin Breakdown/Ulcer: No (07/12/2016 07:32:LUISA Sandhu) Special Diet: No (07/12/2016 07:32:LUISA Sandhu) Specify Diet: allergy to peanuts (07/12/2016 07:32:LUISA Sandhu) Pt Requests Lens Fabricating Machine Tender Visit: No (07/12/2016 07:32:LUISA Sandhu) Hx of Any of the Following?: N/A (07/12/2016 07:32:LUISA Sandhu) New Diagnosis of: N/A (07/12/2016 07:32:LUISA Sandhu) Requires Assist w/Ambulation: No (07/12/2016 07:32:LUISA Sandhu) Uses Assist Device to Ambulate: No (07/12/2016 07:32:LUISA Sandhu) Pt Requires Help w/ADL's: No (07/12/2016 07:32:LUISA Sandhu)
--- NOTE | 2016-07-13 06:25 | L&D General Admission ---
General Admit Datetime Report Generated by CPN: 07/13/2016 06:00 INFORMATION Patient Age: 35 (06/09/2016 12:52:QS system process) EDC: 07/27/2016 00:00 (06/09/2016 12:57:Kimberly Carlos RN) : 4 (06/09/2016 12:57:Mike Oh RN) Para: 3 (07/08/2016 15:27:Sylvie Grande RN) Term: 3 (06/09/2016 12:57:Sylvie Grande RN) : 0 (06/09/2016 12:57:Sylvie Grande RN) Spontaneous Abortions: 0 (06/09/2016 12:57:Sylvie Grande RN) Induced Abortions: 0 (06/09/2016 12:57:Sylvie Grande RN) Livin (06/09/2016 12:57:Mike Oh RN) Cesareans: 0 (06/09/2016 12:57:Sylvie Grande RN) VBACs: 0 (06/09/2016 12:57:Sylvie Grande RN) Ectopic: 0 (06/09/2016 12:57:Sylvie Grande RN) Multiple Births: 0 (Annotations: Data stored by [facility] on behalf of user) (06/09/2016 12:57:Sylvie Grande RN) Baby, Number in Womb: 1 (07/08/2016 15:27:Sylvie Grande RN) CARE Primary Institutional Commodity Analyst: [facility] (06/09/2016 12:57:Kimberly Carlos RN) Institutional Commodity Analyst Other: [facility] (06/09/2016 12:57:Kimberly Carlos RN) Adequate Care: Yes (06/09/2016 12:57:LUISA Sandhu) Prepregnancy Weight (lb): 114 (06/09/2016 12:57:LUISA Sandhu) Prepregnancy Weight (kg): 51.8 (06/09/2016 12:57:QS system process) Height (in): 61 (07/12/2016 15:23:QS system process) ALLERGIES Medication Allergy: Yes (06/09/2016 12:57:Mike Oh RN) Medication Allergies: sulfamethoxazole (07/01/2016); trimethoprim (07/01/2016) (07/01/2016 12:40:QS system process) Latex Allergy: No Latex Allergies (06/09/2016 12:57:Mike Oh RN) COMMUNICATION Primary Language: Gambian (06/09/2016 12:57:Kimberly Carlos RN) Medical Tx Preferred Language: Gambian (06/09/2016 12:57:Mike Oh RN) Communication Barrier(s): None (06/09/2016 12:57:Mike Oh RN) DEMOGRAPHICS Address: [address] [place] [address] [address] (07/01/2016 12:25:QS system process) Zipcode: [address] (06/09/2016 12:52:QS system process) Home (06/09/2016 12:52:QS system process) Work (06/09/2016 12:52:QS system process) SSN: [id number] (06/09/2016 12:52:QS system process) Next of Kin Name: YOVANY LOFTON (06/09/2016 12:52:QS system process) Next of Kin (07/12/2016 07:21:QS system process) Next of Kin Relationship: OR (06/09/2016 12:52:QS system process) Date of : 1980 (06/09/2016 12:52:QS system process) Marital Status: (06/09/2016 12:52:QS system process) Sex: Female (06/09/2016 12:52:QS system process) Race: Other (06/09/2016 12:52:QS system process) Ethnicity: Non- or (06/09/2016 12:52:QS system process) Episcopalian: [employer] (07/01/2016 12:25:QS system process) DRUG AND ALCOHOL USE Alcohol: No (06/09/2016 12:57:Mike Oh RN) Cigarettes: Never Smoker. [id number] (06/09/2016 12:57:Mike Oh RN) Marijuana: No (06/09/2016 12:57:Mike Oh RN) Cocaine: No (06/09/2016 12:57:Mike Oh RN) Other Illicit Drugs: No (06/09/2016 12:57:Mike Oh RN) VACCINE HISTORY Influenza Vaccine: No (06/09/2016 12:57:Mike Oh RN) Pneumococcal Vaccine: Uncertain (06/09/2016 12:57:Mike Oh RN) Tdap Vaccine: Yes (06/09/2016 12:57:Mike Oh RN) Hepatitis B Vaccine: Yes (06/09/2016 12:57:Mike Oh RN) Can Line Examiner: [facility] (06/09/2016 12:57:Mike Oh RN) Feeding Preference: Both (06/09/2016 12:57:Mike Oh RN) Benefit of Breast Feed Discussed: Yes (06/09/2016 12:57:Mike Oh RN) Circumcision: N/A (06/09/2016 12:57:Mike Oh RN) Classes Attended: No (06/09/2016 12:57:Mike Oh RN) Tubal Ligation: No (06/09/2016 12:57:Mike Oh RN) Tubal Authorization Signed: N/A (06/09/2016 12:57:Mike Oh RN) Consent: N/A (06/09/2016 12:57:Mike Oh RN) Consent Signed: N/A (06/09/2016 12:57:Mike Oh RN) Pain Management Plans: Natural (06/09/2016 12:57:Mike Oh RN) Plans for Labor and Delivery: None (06/09/2016 12:57:Mike Oh RN) Support Person: Yovany Lofton (06/09/2016 12:57:Mike Oh RN) Support Person Relationship: Significant Other (06/09/2016 12:57:Mike Oh RN) Cultural/Spritual Practice: No (06/09/2016 12:57:Mike Oh RN) Spir/Cult Dietary Needs: No (06/09/2016 12:57:Mike Oh RN) LIVING SITUATION/DISCHARGE PLAN Living Arrangements: Apartment (06/09/2016 12:57:Mike Oh RN) Adequate Access to:: Electric; Heat; Refrigeration; Plumbing/Running water; Phone; Transportation (06/09/2016 12:57:Mike Oh RN) WIC Program: Yes (06/09/2016 12:57:Mike Oh RN) Discharge Education Reviewer Person: Yovany Lofton (06/09/2016 12:57:Mike Oh RN) Person to Help after Discharge: Yovany Loftno (06/09/2016 12:57:Mike Oh RN) Currently Using Commun Resources: Yes (06/09/2016 12:57:Mike Oh RN) Specify Current Resource Used: Medicaid (06/09/2016 12:57:Mike Oh RN) Outside Agency/Hot Tar Roofer: No (06/09/2016 12:57:iMke Oh RN) Adoption Requested: No (06/09/2016 12:57:Mike Oh RN) Pt Contact w/ Post : N/A (06/09/2016 12:57:Mike Oh RN) LABS Blood Type: A Positive (06/09/2016 12:57:Mike Oh RN) Antibody Screen: Positive (06/09/2016 12:57:Mike Oh RN) Hemoglobin: 10.6 L (07/12/2016 08:27:QS system process) Hematocrit: 34.0 L (07/12/2016 08:27:QS system process) MCV: 79 L (07/12/2016 08:27:QS system process) Group Beta Strep: negative (06/09/2016 12:57:Crystal Wang RN) Gonorrhea: Negative (06/09/2016 12:57:Crystal Wang RN) Chlamydia: Negative (06/09/2016 12:57:Crystal Wang RN) RPR/VDRL: Nonreactive (06/09/2016 12:57:Mike Oh RN) HIV Exposure Test: Negative (06/09/2016 12:57:Mike Oh RN) Hepatitis B: Negative (06/09/2016 12:57:Mike Oh RN) Rubella: Immune (06/09/2016 12:57:Mike Oh RN) Varicella: Immune (06/09/2016 12:57:Mike Oh RN) OB/PREVIOUS HISTORY Previous Procedures: Ultrasound (06/09/2016 12:57:Mike Oh RN) Current Procedures: Ultrasound (06/09/2016 12:57:Mike Oh RN) History of Previous : No (06/09/2016 12:57:Mike Oh RN) History of Gestational Diabetes: No (06/09/2016 12:57:Mike Oh RN) History of PIH: No (06/09/2016 12:57:Mike Oh RN) History of Incompetent Cervix: No (06/09/2016 12:57:Mike Oh RN) History of Placenta Previa/Abrup: No (06/09/2016 12:57:Mike Oh RN) History of Macrosomia: No (06/09/2016 12:57:Mike Oh RN) History of IUGR: No (06/09/2016 12:57:Mike Oh RN) History of Hemorrhage: No (06/09/2016 12:57:Mike Oh RN) History of Loss/Stillborn: No (06/09/2016 12:57:Mike Oh RN) History of : No (06/09/2016 12:57:Mike Oh RN) History of D (Rh) Sensitization: No (06/09/2016 12:57:Mike Oh RN) History Recurrent Loss/Stillborn: No (06/09/2016 12:57:Mike Oh RN) History Depression/PP Depression: Yes (06/09/2016 12:57:Mike Oh RN) History of Uterine Anomaly/LANDON: No (06/09/2016 12:57:Mike Oh RN) History of Infertility: No (06/09/2016 12:57:Mike Oh RN) History of ART Treatment: No (06/09/2016 12:57:Mike Oh RN) History of LANDON: No (06/09/2016 12:57:Mike Oh RN) Comments Obstetrical History: G1 06/27/2000 36W M Epidural [place] G2 09/25/2002 36W F Epidural [facility] G3 05/05/2008 36W F [facility] (06/09/2016 12:57:Mike Oh RN) MEDICAL HISTORY Med Hx Diabetes: No (06/09/2016 12:57:Mike Oh RN) Med Hx Hypertension: No (06/09/2016 12:57:Mike Oh RN) Med Hx Heart Disease: No (06/09/2016 12:57:Mike Oh RN) Med Hx Autoimmune Disorder: No (06/09/2016 12:57:Mike Oh RN) Med Hx Kidney Disease/UTI: No (06/09/2016 12:57:Mike Oh RN) Med Hx Neurologic/Epilepsy: No (06/09/2016 12:57:Mike Oh RN) Med Hx Psychiatric Disorders: No (06/09/2016 12:57:Mike Oh RN) Med Hx Hepatitis/Liver Disease: No (06/09/2016 12:57:Mike Oh RN) Med Hx Varicosities/Phlebitis: No (06/09/2016 12:57:Mike Oh RN) Med Hx Thyroid Dysfunction: No (06/09/2016 12:57:Mike Oh RN) Med Hx Trauma/Violence: No (06/09/2016 12:57:Mike Oh RN) Med Hx Blood Transfusion: No (06/09/2016 12:57:Mike Oh RN) Med Hx Pulmonary (Asthma,TB): No (06/09/2016 12:57:Mike Oh RN) Med Hx Breast: No (06/09/2016 12:57:Mike Oh RN) Med Hx RADIO INTELLIGENCE OPERATOR Surgery: No (06/09/2016 12:57:Mike Oh RN) Med Hx Hospitalization/Surgery: Yes (06/09/2016 12:57:Mike Oh RN) Med Hx Anesthetic Complications: No (06/09/2016 12:57:Mike Oh RN) Med Hx Abnormal Pap Smear: No (06/09/2016 12:57:Mike Oh RN) Other Medical Diseases: No (06/09/2016 12:57:Mike Oh RN) Med Hx Significant Family Hx: No (06/09/2016 12:57:Mike Oh RN) Details of Med/Surg Hx: Gallbladder 2004 Hx Depression, Frequent UTIs (06/09/2016 12:57:Mike Oh RN) INFECTIOUS HISTORY Inf Hx Gonorrhea: No (06/09/2016 12:57:Mike Oh RN) Inf Hx Chlamydia: No (06/09/2016 12:57:Mike Oh RN) Inf Hx Syphilis: No (06/09/2016 12:57:Mike Oh RN) Inf Hx HIV/AIDS: No (06/09/2016 12:57:Mike hO RN) Inf Hx Human Papilloma Virus: No (06/09/2016 12:57:Mike Oh RN) Inf Hx Pt/Partner Genital Herpes: No (06/09/2016 12:57:Mike Oh RN) Inf Hx Tuberculosis/Exposure: No (06/09/2016 12:57:Mike Oh RN) Inf Hx Hepatitis B,C: No (06/09/2016 12:57:Mike Oh RN) Inf Hx Rash or Viral Illness: No (06/09/2016 12:57:Mike Oh RN) GENETIC HISTORY Gen Hx Age >=35 at R[place]: No (06/09/2016 12:57:Mike Oh RN) Gen Hx Thalassemia: No (06/09/2016 12:57:Mike Oh RN) Gen Hx Congenital Heart Defect: No (06/09/2016 12:57:Mike Oh RN) Gen Hx Neural Tube Defect: No (06/09/2016 12:57:Mike Oh RN) Gen Hx Down's Syndrome: No (06/09/2016 12:57:Mike Oh RN) Gen Hx Arya-Sachs: No (06/09/2016 12:57:Mike Oh RN) Gen Hx Jose C: No (06/09/2016 12:57:Mike Oh RN) Gen Hx Familial Dysautonomia: No (06/09/2016 12:57:Mike Oh RN) Gen Hx Sickle Cell Disease/Trait: No (06/09/2016 12:57:Mike Oh RN) Gen Hx Hemophilia/Blood Disorder: No (06/09/2016 12:57:Mike Oh RN) Gen Hx Muscular Dystrophy: No (06/09/2016 12:57:Mike Oh RN) Gen Hx Cystic Fibrosis: No (06/09/2016 12:57:Mike Oh RN) Gen Hx Huntingtons Chorea: No (06/09/2016 12:57:Mike Oh RN) Gen Hx Mental Retardation/Autism: No (06/09/2016 12:57:Mike Oh RN) Gen Hx Tested for Fragile X: No (06/09/2016 12:57:Mike Oh RN) Gen Hx Other Inher/Chromosomal: No (06/09/2016 12:57:Mike Oh RN) Gen Hx Maternal Metabolic DO: No (06/09/2016 12:57:Mike Oh RN) Gen Hx Pt Father or FOB Defect: No (06/09/2016 12:57:Mike Oh RN) Gen Hx Other Genetic History: No (06/09/2016 12:57:Mike Oh RN) Gen Hx Drugs/Meds since LMP: No (06/09/2016 12:57:Mike Oh RN)
--- NOTE | 2016-07-13 06:29 | L&D Care Plan ---
LD CARE PLANS Datetime Report Generated by CPN: 07/13/2016 06:15 Datetime: 07/12/2016 07:28 State: Risk For (Sylvie Grande RN) Related To: Labor and Delivery Process (Sylvie Grande RN) Goal(s): Patients Pain will be Assessed and Managed; Patient will Verbalize Adequate Relief of Pain or the Ability to [place] with Current Pain (Sylvie rGande RN) Interventions: Assess Pain Severity on Scale of 0 (None) to 5 (Severe); Assess Type, Location and Intensity of Pain Each Time Client Reports Discomfort and Notify Provider if Unusal Pain Develops; Encourage Proper Breathing and Relaxation Techniques; Offer Alternatives Such as Repositioning, Calm Environment, Massages, Diversional Activities, Ice Pack, Splinting, and Ambulation (Sylvie Grande RN) Outcome: Patient will Report Absence or Relief of Pain Consistent with Established Pain Goal (Sylvie Grande RN) Status: Ongoing (Sylvie Grande RN) Outcome: Patient will have a Decrease in Signs and Symptoms of Discomfort (Sylvie Grande RN) Status: Ongoing (Sylvie Grande RN) State: Not Applicable (Sylvie Grande RN) State: Risk For (Sylvie Grande RN) Related To: Labor and Delivery Process (Sylvie Grande RN) Goal(s): Patient will Accurately Verbalize Understanding of Plan of Care and Treatment; Patient and Family will Accurately Verbalize Understanding of the Disease Process (Sylvie Grande RN) Interventions: Assess Motivation and Willingness of Patient/Family to Learn; Assess Preferred Learning Mode: One to One Instruction, Reading, Videos, Group Discussion or Demonstration; Assess Barriers to Learning: Pain, Emotional State, Language Barrier, Cognitive Impairment, Visual or Hearing Deficits; Assess Patient and Family Knowledge of Disease Process, Medications and Treatment; Discuss Therapy and/or Treatment Options, Describe Rationale Behind Management, Therapy and Treatment Recommendations (Sylvie Grande RN) Outcome: Patient and Family will Verbalize Understanding of Condition, Treatment and Signs and Symptoms to Report (Sylvie Grande RN) Status: Ongoing (Sylvie Grande RN) Outcome: Patient will Identify Perceived Learning Needs and Express Motivation to Learn (Sylvie Grande RN) Status: Ongoing (Sylvie Grande RN) State: Risk For (Sylvie Grande RN) Related To: Altered Tissue Integrity (Sylvie Grande RN) Goal(s): The Patient will be Free of Infection, Vital Signs Stable and Lab Work within Normal Parameters (Sylvie Grande RN) Interventions: Instruct and Reinforce Proper Handwashing, Hygiene, and Care Techniques to Patient and Family; Monitor Vital Signs; Monitor Patient for the Following Signs of Infection: Fever, Abdominal Tenderness, Unusual Discharge; Monitor Aminiotic Fluid, Urine and Lochia for Color and Odor (Sylvie Grande, BEN) Outcome: Patient will Remain Free of Infection (Sylvie Grande RN) Status: Ongoing (Sylvie Grande RN) Outcome: Infection will be Recognized Early to Allow for Prompt Treatment (Sylvie Grande RN) Status: Ongoing (Sylvie Grande RN) State: Not Applicable (Sylvie Grande RN) State: Not Applicable (Sylvie Grande RN) State: Risk For (Sylvie Grande RN) Related To: Vaginal Delivery; Altered Tissue Integrity (Sylvie Grande RN) Goal(s): Patient will Maintain Optimal Skin Integrity, Free of Breakdown, Injury or Infection (Sylvie Grande, BEN) Interventions: Complete Screening for Pressure Ulcer Risk and Initiate Protocol per Hospital Policy; Monitor Site of Skin Impairment for Color Changes, Redness, Swelling, Warmth, Pain or Other Signs of Infection; Encourage and Assist with Position Changes; Monitor Patient's Mobility Status (Sylvie Grande RN) Outcome: Patient will not have Evidence of Injury Such as Skin Breakdown, Scrapes, Cuts, or Bruising (Sylvie Grande RN) Status: Ongoing (Sylvie Grande RN) Outcome: Patient will Report Any Altered Sensation or Pain at Site of Skin Impairment (Sylvie Grande RN) Status: Ongoing (Sylvie Grande RN) State: Not Applicable (Sylvie Grande RN) State: Not Applicable (Sylvie Grande RN) State: Not Applicable (Sylvie Grande RN) Datetime: 07/12/2016 07:27 State: Risk For (Sylvie Grande RN) Related To: Labor and Delivery Process (Sylvie Grande RN) Goal(s): Patients Pain will be Assessed and Managed; Patient will Verbalize Adequate Relief of Pain or the Ability to [place] with Current Pain (Sylvie Grande RN) Interventions: Assess Pain Severity on Scale of 0 (None) to 5 (Severe); Assess Type, Location and Intensity of Pain Each Time Client Reports Discomfort and Notify Provider if Unusal Pain Develops; Encourage Proper Breathing and Relaxation Techniques; Offer Alternatives Such as Repositioning, Calm Environment, Massages, Diversional Activities, Ice Pack, Splinting, and Ambulation (Sylvie Grande RN) Outcome: Patient will Report Absence or Relief of Pain Consistent with Established Pain Goal (Sylvie Grande RN) Status: Ongoing (Sylvie Grande RN) Outcome: Patient will have a Decrease in Signs and Symptoms of Discomfort (Sylvie Grande RN) Status: Ongoing (Sylvie Grande RN) State: Not Applicable (Sylvie Grande RN) State: Risk For (Sylvie Grande RN) Related To: Labor and Delivery Process (Sylvie Grande RN) Goal(s): Patient will Accurately Verbalize Understanding of Plan of Care and Treatment; Patient and Family will Accurately Verbalize Understanding of the Disease Process (Sylvie Grande RN) Interventions: Assess Motivation and Willingness of Patient/Family to Learn; Assess Preferred Learning Mode: One to One Instruction, Reading, Videos, Group Discussion or Demonstration; Assess Barriers to Learning: Pain, Emotional State, Language Barrier, Cognitive Impairment, Visual or Hearing Deficits; Assess Patient and Family Knowledge of Disease Process, Medications and Treatment; Discuss Therapy and/or Treatment Options, Describe Rationale Behind Management, Therapy and Treatment Recommendations (Sylvie Grande RN) Outcome: Patient and Family will Verbalize Understanding of Condition, Treatment and Signs and Symptoms to Report (Sylvie Grande RN) Status: Ongoing (Sylvie Grande RN) Outcome: Patient will Identify Perceived Learning Needs and Express Motivation to Learn (Sylvie Grande RN) Status: Ongoing (Sylvie Grande RN) State: Risk For (Sylvie Grande RN) Related To: Altered Tissue Integrity (Sylvie Grande RN) Goal(s): The Patient will be Free of Infection, Vital Signs Stable and Lab Work within Normal Parameters (Sylvie Grande RN) Interventions: Instruct and Reinforce Proper Handwashing, Hygiene, and Care Techniques to Patient and Family; Monitor Vital Signs; Monitor Patient for the Following Signs of Infection: Fever, Abdominal Tenderness, Unusual Discharge; Monitor Aminiotic Fluid, Urine and Lochia for Color and Odor (Sylvie Grande, BEN) Outcome: Patient will Remain Free of Infection (Sylvie Grande RN) Status: Ongoing (Sylvie Grande RN) Outcome: Infection will be Recognized Early to Allow for Prompt Treatment (Sylvie Grande RN) Status: Ongoing (Sylvie Grande RN) State: Not Applicable (Sylvie Grande RN) State: Not Applicable (Sylvie Grande RN) State: Risk For (Sylvie Grande RN) Related To: Vaginal Delivery; Altered Tissue Integrity (Sylvie Grande RN) Goal(s): Patient will Maintain Optimal Skin Integrity, Free of Breakdown, Injury or Infection (Sylvie Grande RN) Interventions: Complete Screening for Pressure Ulcer Risk and Initiate Protocol per Hospital Policy; Monitor Site of Skin Impairment for Color Changes, Redness, Swelling, Warmth, Pain or Other Signs of Infection; Encourage and Assist with Position Changes; Monitor Patient's Mobility Status (Sylvie Grande RN) Outcome: Patient will not have Evidence of Injury Such as Skin Breakdown, Scrapes, Cuts, or Bruising (Sylvie Grande RN) Status: Ongoing (Sylvie rGande RN) Outcome: Patient will Report Any Altered Sensation or Pain at Site of Skin Impairment (Sylvie Grande RN) Status: Ongoing (Sylvie Grande RN) State: Not Applicable (Sylvie Grande RN) State: Not Applicable (Sylvie Grande RN) State: Not Applicable (Sylvie Grande RN)
[2016-07-13 07:51] LABS: HEMATOCRIT 33.3 % (36.0-47.0); HEMOGLOBIN 10.2 g/dL (12.0-15.5); HGB HCT DIFFERENCE -2.7; MEAN CORPUSCULAR HEMOGLOBIN 24.5 pg (27.0-33.4); MEAN CORPUSCULAR HGB CONC 30.6 g/dL (32.0-36.0); MEAN CORPUSCULAR VOLUME 80 fl (80-97); RED BLOOD COUNT 4.16 10^6/uL (3.72-5.28); RED CELL DISTRIBUTION WIDTH 15.9 % (11.5-14.0); WHITE BLOOD COUNT 20.2 10^3/uL (4.0-10.5)
[2016-07-13] MEDS: FERROUS SULFATE 325 MG TABLET PO SCH ×2 (10:22→17:43)
[2016-07-13] MEDS: DOCUSATE SODIUM 100 MG CAPSULE PO SCH ×2 (10:22→17:43)
[2016-07-13] MEDS: PRENATAL VITAMIN W-O CA NO5/FE FUMARATE/FA CAPSULE PO SCH (10:22)
[2016-07-13] MEDS: SENNOSIDES/DOCUSATE 8.6-50 MG 1 EACH TABLET PO SCH (10:23)
[2016-07-13] MEDS ORDERED: INFLUENZA ADLT QUAD (36MOS+) 2016-17 VAC 0.5 ML SYR IM PRN (13:18)
--- NOTE | 2016-07-13 15:50 | PDOC PROGRESS REPORT ---
Subjective-OB Subjective: Post Delivery Day:1 35 year old s/p vaginal delivery. and voiding without difficulty. Denies any needs at this time Physical Exam (OB) Vital Signs: Temp Pulse Resp BP Pulse Ox 97.8 F 71 18 144/82 H 100 07/13/16 07:50 07/13/16 07:50 07/13/16 07:50 07/13/16 07:50 07/13/16 07:50 Intake & Output 07/12/16 07/13/16 07/14/16 06:59 06:59 06:59 Weight 74 kg - General General Appearance: Appears well In distress: None - PIH/Pre-Eclampsia Headache: Absent Epigastric Pain: No Visual Changes: No - Episiotomy/Laceration Site Condition: N/A - Lochia Lochia Amount: Scant < 10 ml Lochia Color: Rubra/Red - Abdomen Description: Soft Hernia Present: No Fundal Description: Firm, Midline Fundal Height: u/u - u/2 - Respiratory Respiratory Status: No respiratory distress - Extremities Upper extremity: Normal inspection Lower extremities: Normal inspection - Neurological Orientation: AAOx4 - Psychological Associated symptoms: Normal affect, Normal mood - bonding well with baby Objective-Diagnostic Laboratory: 07/13/16 07:04 07/13/16 07:04 WBC 20.2 H RBC 4.16 Hgb 10.2 L Hct 33.3 L MCV 80 MCH 24.5 L MCHC 30.6 L RDW 15.9 H Plt Count 235 Assessment and Plan(PN) - Assessment and Plan (1) Vaginal delivery Is this a current diagnosis for this admission?: YesPlan: continue stay, repeat cbc in the AM. Repeat BP 124/64 - Time Spent with Patient Time with patient: 15-25 minutes Medications reviewed and adjusted accordingly: Yes - Disposition Anticipated Discharge: Home Within: within 24 hours
[2016-07-14] MEDS: IBUPROFEN 800 MG TABLET PO SCH ×2 (05:09→13:12)
[2016-07-14 08:02] VITALS: BP 114/66
[2016-07-14 08:39] LABS: HEMATOCRIT 28.6 % (36.0-47.0); HEMOGLOBIN 8.7 g/dL (12.0-15.5); HGB HCT DIFFERENCE -2.5; MEAN CORPUSCULAR HEMOGLOBIN 24.4 pg (27.0-33.4); MEAN CORPUSCULAR HGB CONC 30.5 g/dL (32.0-36.0); MEAN CORPUSCULAR VOLUME 80 fl (80-97); RED BLOOD COUNT 3.56 10^6/uL (3.72-5.28); RED CELL DISTRIBUTION WIDTH 16.1 % (11.5-14.0); WHITE BLOOD COUNT 15.8 10^3/uL (4.0-10.5)
[2016-07-14 09:16] LABS: BAND NEUTROPHILS % (MANUAL) 2 % (3-5); BASOPHILS % (MANUAL) 0 % (0-2); EOSINOPHILS % (MANUAL) 5 % (0-6); LYMPHOCYTES % (MANUAL) 15 % (13-45); TOTAL CELLS COUNTED 100
[2016-07-14 09:17] LABS: ANISOCYTOSIS 1+; HYPOCHROMASIA SLIGHT; POLYCHROMASIA SLIGHT; TOXIC GRANULATION SLIGHT
[2016-07-14] MEDS: SENNOSIDES/DOCUSATE 8.6-50 MG 1 EACH TABLET PO SCH (09:39)
[2016-07-14] MEDS: PRENATAL VITAMIN W-O CA NO5/FE FUMARATE/FA CAPSULE PO SCH (09:40)
[2016-07-14] MEDS: DOCUSATE SODIUM 100 MG CAPSULE PO SCH (09:40)
[2016-07-14] MEDS: FERROUS SULFATE 325 MG TABLET PO SCH (09:40)
--- NOTE | 2016-07-14 11:14 | PDOC DISCHARGE SUMMARY ---
Final Diagnosis Discharge Date: 07/14/16 - Final Diagnosis (1) Vaginal delivery Is this a current diagnosis for this admission?: Yes Discharge Data - Discharge Medication Home Medications: Hydroxyzine Pamoate [Vistaril 25 mg Capsule] 25 mg PO DAILY PRN 07/12/16 Uuz027/FA/Omega3/Dha/Fish Oil [ Gummies] 1 each PO DAILY 07/12/16 Reason(s) for Admission: Onset of Labor Procedures: NST Intrapartum Procedure(s): Spontaneous Vaginal Delivery Intrapartum Procedure Note: shoulder dystocia - Diagnosis Test Laboratory: Temp Pulse Resp BP Pulse Ox 97.8 F 75 16 114/66 100 07/14/16 07:53 07/14/16 07:53 07/14/16 07:53 07/14/16 07:53 07/14/16 07:53 07/12/16 07/13/16 07/14/16 08:27 07:04 07:21 RBC 4.30 4.16 3.56 L Hgb 10.6 L 10.2 L 8.7 L Hct 34.0 L 33.3 L 28.6 L - Discharge information/Instructions Discharge Activity: Activity As Tolerated, Pelvic Rest, No tub bath Discharge Diet: Regular Disposition: HOME, SELF-CARE Follow [facility] with: [facility] in: 4, Weeks
--- NOTE | 2016-07-22 14:59 | Delivery Summary ---
Del Sum A-C Datetime Report Generated by CPN: 07/22/2016 14:59 ADMISSION DATA Chief Complaint: Suspected Ruptured Membranes Indication for Induction: Not Applicable Admission Impression: Term, Intrauterine Admit Provider Comments: 35 yo G 4P3 EGA 37.6 EDC 07/27/16 presents with SROM Pmsx- gall bladder removal Pmhx- depression abdomen nontender FHTs 130s average variability desires epidural plan of care reviewed with pt and family DELIVERY PERSONNEL Delivery Doctor:: Riana Oseguera CNM Anesthesiologist:: Barry Sampson MD Labor and Delivery Nurse:: Sylvie Grande RNband cutting machine operator Nurse:: Ronit Lopez RN Rn Ante Partum/COMMISSIONER OF CONCILIATION: Arnoldo Mena, ST MATERNAL INFORMATION Delivery Anesthesia: Epidural Medications After Delivery: Pitocin Drip 20 Units/1000ml NSS Estimated Blood Loss (ml): 400 Maternal Complications: None Provider Comments: pt complete tracing late decelerations noted pt with urge to push after epidural placement kenyon suprapubic pressure releases right shoulder pt pushing moderately rotated to direct OP copious amounts of terminal meconium tactile stimulation elicits spont cry bulb suctioned cord clamped cut by FOB cord blood obtained placenta intact marginal insertion to pathology uterus explored small clots expelled perineum intact EBL 400 cc hemostasis achieved LABOR SUMMARY EDC: 07/27/2016 00:00 No. Babies in Womb: 1 Labor Anesthesia: Epidural LABOR INFORMATION Reason for Induction: Not Applicable Onset of Labor: 07/12/2016 06:30 Complete Dilatation: 07/12/2016 10:33 Oxytocin: N/A Group B Beta Strep: negative Steroids Given: None Reason Steroids Not Administered: Not Applicable MEMBRANES Membranes Rupture Method: Spontaneous Rupture of Membranes: 07/12/2016 06:30 Length of Rupture (hr): 4.28 Amniotic Fluid Color: Clear Amniotic Fluid Amount: Moderate Amniotic Fluid Odor: Normal STAGES OF LABOR Stage 1 hr: 4 Stage 1 min: 3 Stage 2 hr: 0 Stage 2 min: 14 Stage 3 hr: 0 Stage 3 min: 3 Total Time in Labor hr: 4 Total Time in Labor min: 20 VAGINAL DELIVERY Episiotomy: None Laceration Extension: N/A Laceration Type: None Sponge Count Correct: N/A BABY A INFORMATION Infant Delivery Date/Time: 07/12/2016 10:47 Method of Delivery: Vaginal Born in Route : No : N/A Forceps: N/A Vacuum Extraction: N/A Shoulder Dystocia : Yes SHOULDER DYSTOCIA BABY A Delivery of Head: 07/12/2016 10:47 Time Head to Delivery : 0.0 1st Intervention to Resolve: McRobert's Maneuver 2nd Intervention to Resolve: Suprapubic Pressure Verify NO Fundal Pressure: No Fundal Pressure Applied PRESENTATION/POSITION BABY A Presentation: Cephalic Cephalic Presentation: Vertex Vertex Position: direct OP Breech Presentation: N/A PLACENTA INFORMATION BABY A Placenta Delivery Time : 07/12/2016 10:50 Placenta Method of Delivery: Spontaneous Placenta Status: Delivered SCORES BABY A Heart Rate 1 min: >100 bpm Resp Effort 1 min: Good Cry Reflex Irritability 1 min: Cough or Sneeze or Pulls Away Muscle Tone 1 min: Active Motion Color 1 min: Blue/Pale Resuscitation Effort 1 min: Tactile Stimulation SCORE 1 MIN: 8 Heart Rate 5 min: >100 bpm Resp Effort 5 min: Good Cry Reflex Irritability 5 min: Cough or Sneeze or Pulls Away Muscle Tone 5 min: Active Motion Color 5 min: Body Chambers, Extremities Blue Resuscitation Effort 5 min: Tactile Stimulation SCORE 5 MIN: 9 INFORMATION BABY A Gestational Age at Delivery: 37.6 Gestational Status: Early Term- 37- 38.6 Weeks Outcome : Liveborn Infant Condition : Stable Infant Sex: Female IDENTIFICATION BABY A Verification Date/Time: 07/12/2016 10:57 ID Band Number: [id number] Mother's Name Verified: Yes Infant RN Verifying : Jennifer Lopez RN Additional Verifying Personnel: Donnell Grande RN WEIGHT/LENGTH BABY A Birthweight (gm): 3410 Weight (lb): 7 Infant Weight (oz): 8 Infant Length (in): 19.50 Length (cm): 49.53 CORD INFORMATION BABY A No. Cord Vessels: 3 Nuchal Cord : N/A Cord Blood Taken: Yes-For Storage (Mom's Blood type +) Infant Suction: Mouth ASSESSMENT BABY A Infant Complications: Shoulder Dystocia Infant Complications- Other: terminal meconium Physical Findings at Delivery: Within Normal Limits Infant Respirations: Appears Normal Skin to Skin: Yes Skin to Skin Time (min): 30 Ecommerce Marketing Manager/ALS Called : No Infant Care By: Jennifer Lopez RN Transferred To: Nursery SIGNATURES Assignment: DO Braydon Santiago: with User ID: Bowen : with User ID: Bowen
--- NOTE | 2016-07-23 06:01 | L&D General Admission ---
General Admit Datetime Report Generated by CPN: 07/23/2016 06:00 INFORMATION Patient Age: 35 (06/09/2016 12:52:QS system process) EDC: 07/27/2016 00:00 (06/09/2016 12:57:Kimberly Carlos RN) : 4 (06/09/2016 12:57:Mike Oh RN) Para: 3 (07/08/2016 15:27:Sylvie Grande RN) Term: 3 (06/09/2016 12:57:Sylvie Grande RN) : 0 (06/09/2016 12:57:Sylvie Grande RN) Spontaneous Abortions: 0 (06/09/2016 12:57:Sylvie Grande RN) Induced Abortions: 0 (06/09/2016 12:57:Sylvie Grande RN) Livin (06/09/2016 12:57:Mike Oh RN) Cesareans: 0 (06/09/2016 12:57:Sylvie Grande RN) VBACs: 0 (06/09/2016 12:57:Sylvie Grande RN) Ectopic: 0 (06/09/2016 12:57:Sylvie Grande RN) Multiple Births: 0 (Annotations: Data stored by [facility] on behalf of user) (06/09/2016 12:57:Sylvie Grande RN) Baby, Number in Womb: 1 (07/08/2016 15:27:Sylvie Grande RN) CARE Primary Access Services Representative: [facility] (06/09/2016 12:57:Kimberly Carlos RN) Access Services Representative Other: [facility] (06/09/2016 12:57:Kimberly Carlos RN) Adequate Care: Yes (06/09/2016 12:57:LUISA Sandhu) Prepregnancy Weight (lb): 114 (06/09/2016 12:57:LUISA Sandhu) Prepregnancy Weight (kg): 51.8 (06/09/2016 12:57:QS system process) Height (in): 61 (07/14/2016 11:14:QS system process) ALLERGIES Medication Allergy: Yes (06/09/2016 12:57:Mike Oh RN) Medication Allergies: sulfamethoxazole (07/01/2016); trimethoprim (07/01/2016) (07/01/2016 12:40:QS system process) Latex Allergy: No Latex Allergies (06/09/2016 12:57:Mike Oh RN) COMMUNICATION Primary Language: Moroccan (06/09/2016 12:57:Kimberly Carlos RN) Medical Tx Preferred Language: Moroccan (06/09/2016 12:57:Mike Oh RN) Communication Barrier(s): None (06/09/2016 12:57:Mike Oh RN) DEMOGRAPHICS Address: [address] [place] [address] [address] (07/01/2016 12:25:QS system process) Zipcode: [address] (06/09/2016 12:52:QS system process) Home (06/09/2016 12:52:QS system process) Work (06/09/2016 12:52:QS system process) SSN: [id number] (06/09/2016 12:52:QS system process) Next of Kin Name: YOVANY LOFTON (06/09/2016 12:52:QS system process) Next of Kin (07/12/2016 07:21:QS system process) Next of Kin Relationship: OR (06/09/2016 12:52:QS system process) Date of : 1980 (06/09/2016 12:52:QS system process) Marital Status: (06/09/2016 12:52:QS system process) Sex: Female (06/09/2016 12:52:QS system process) Race: Other (06/09/2016 12:52:QS system process) Ethnicity: Non- or (06/09/2016 12:52:QS system process) Alevism: Sabianism (07/01/2016 12:25:QS system process) DRUG AND ALCOHOL USE Alcohol: No (06/09/2016 12:57:Mike Oh RN) Cigarettes: Never Smoker. [id number] (06/09/2016 12:57:Mike Oh RN) Marijuana: No (06/09/2016 12:57:Mike Oh RN) Cocaine: No (06/09/2016 12:57:Mike Oh RN) Other Illicit Drugs: No (06/09/2016 12:57:Mike Oh RN) VACCINE HISTORY Influenza Vaccine: No (06/09/2016 12:57:Mike Oh RN) Pneumococcal Vaccine: Uncertain (06/09/2016 12:57:Mike Oh RN) Tdap Vaccine: Yes (06/09/2016 12:57:Mike Oh RN) Hepatitis B Vaccine: Yes (06/09/2016 12:57:Mike Oh RN) Print Producer: [facility] (06/09/2016 12:57:Mike Oh RN) Feeding Preference: Both (06/09/2016 12:57:Mike Oh RN) Benefit of Breast Feed Discussed: Yes (06/09/2016 12:57:Mike Oh RN) Circumcision: N/A (06/09/2016 12:57:Mike Oh RN) Classes Attended: No (06/09/2016 12:57:Mike Oh RN) Tubal Ligation: No (06/09/2016 12:57:Mike Oh RN) Tubal Authorization Signed: N/A (06/09/2016 12:57:Mike Oh RN) Consent: N/A (06/09/2016 12:57:Mike Oh RN) Consent Signed: N/A (06/09/2016 12:57:Mike Oh RN) Pain Management Plans: Natural (06/09/2016 12:57:Mike Oh RN) Plans for Labor and Delivery: None (06/09/2016 12:57:Mike Oh RN) Support Person: Yovany Lofton (06/09/2016 12:57:Mike Oh RN) Support Person Relationship: Significant Other (06/09/2016 12:57:Mike Oh RN) Cultural/Spritual Practice: No (06/09/2016 12:57:Mike Oh RN) Spir/Cult Dietary Needs: No (06/09/2016 12:57:Mike Oh RN) LIVING SITUATION/DISCHARGE PLAN Living Arrangements: Apartment (06/09/2016 12:57:Mike Oh RN) Adequate Access to:: Electric; Heat; Refrigeration; Plumbing/Running water; Phone; Transportation (06/09/2016 12:57:Mike Oh RN) WIC Program: Yes (06/09/2016 12:57:Mike Oh RN) Discharge Horticultural Specialty Grower Field Person: Yovany Lofton (06/09/2016 12:57:Mike Oh RN) Person to Help after Discharge: Yovany Lofton (06/09/2016 12:57:Mike Oh RN) Currently Using Commun Resources: Yes (06/09/2016 12:57:Mike Oh RN) Specify Current Resource Used: Medicaid (06/09/2016 12:57:Mike Oh RN) Outside Agency/Liner Checker: No (06/09/2016 12:57:Mike Oh RN) Adoption Requested: No (06/09/2016 12:57:Mike Oh RN) Pt Contact w/ Post : N/A (06/09/2016 12:57:Mike Oh RN) LABS Blood Type: A Positive (06/09/2016 12:57:Mike Oh RN) Antibody Screen: Positive (06/09/2016 12:57:Mike Oh RN) Hemoglobin: 8.7 L (07/14/2016 07:21:QS system process) Hematocrit: 28.6 L (07/14/2016 07:21:QS system process) MCV: 80 (07/14/2016 07:21:QS system process) Group Beta Strep: negative (06/09/2016 12:57:Crystal Wang RN) Gonorrhea: Negative (06/09/2016 12:57:Crystal Wang RN) Chlamydia: Negative (06/09/2016 12:57:Crystal Wang RN) RPR/VDRL: Nonreactive (06/09/2016 12:57:Mike Oh RN) HIV Exposure Test: Negative (06/09/2016 12:57:Mike Oh RN) Hepatitis B: Negative (06/09/2016 12:57:Mike hO RN) Rubella: Immune (06/09/2016 12:57:Mike Oh RN) Varicella: Immune (06/09/2016 12:57:Mike Oh RN) OB/PREVIOUS HISTORY Previous Procedures: Ultrasound (06/09/2016 12:57:Mike Oh RN) Current Procedures: Ultrasound (06/09/2016 12:57:Mike Oh RN) History of Previous : No (06/09/2016 12:57:Mike Oh RN) History of Gestational Diabetes: No (06/09/2016 12:57:Mike Oh RN) History of PIH: No (06/09/2016 12:57:Mike Oh RN) History of Incompetent Cervix: No (06/09/2016 12:57:Mike Oh RN) History of Placenta Previa/Abrup: No (06/09/2016 12:57:Mike Oh RN) History of Macrosomia: No (06/09/2016 12:57:Mike Oh RN) History of IUGR: No (06/09/2016 12:57:Mike Oh RN) History of Hemorrhage: No (06/09/2016 12:57:Mike Oh RN) History of Loss/Stillborn: No (06/09/2016 12:57:Mike Oh RN) History of : No (06/09/2016 12:57:Mike Oh RN) History of D (Rh) Sensitization: No (06/09/2016 12:57:Mike Oh RN) History Recurrent Loss/Stillborn: No (06/09/2016 12:57:Mike Oh RN) History Depression/PP Depression: Yes (06/09/2016 12:57:Mike Oh RN) History of Uterine Anomaly/LANDON: No (06/09/2016 12:57:Mike Oh RN) History of Infertility: No (06/09/2016 12:57:Mike Oh RN) History of ART Treatment: No (06/09/2016 12:57:Mike Oh RN) History of LANDON: No (06/09/2016 12:57:Mike Oh RN) Comments Obstetrical History: G1 06/27/2000 36W M Epidural [place] G2 09/25/2002 36W F Epidural [facility] G3 05/05/2008 36W F [facility] (06/09/2016 12:57:Mike Oh RN) MEDICAL HISTORY Med Hx Diabetes: No (06/09/2016 12:57:Mike Oh RN) Med Hx Hypertension: No (06/09/2016 12:57:Mike Oh RN) Med Hx Heart Disease: No (06/09/2016 12:57:Mike Oh RN) Med Hx Autoimmune Disorder: No (06/09/2016 12:57:Mike Oh RN) Med Hx Kidney Disease/UTI: No (06/09/2016 12:57:Mike Oh RN) Med Hx Neurologic/Epilepsy: No (06/09/2016 12:57:Mike Oh RN) Med Hx Psychiatric Disorders: No (06/09/2016 12:57:Mike Oh RN) Med Hx Hepatitis/Liver Disease: No (06/09/2016 12:57:Mike Oh RN) Med Hx Varicosities/Phlebitis: No (06/09/2016 12:57:Mike Oh RN) Med Hx Thyroid Dysfunction: No (06/09/2016 12:57:Mike Oh RN) Med Hx Trauma/Violence: No (06/09/2016 12:57:Mike Oh RN) Med Hx Blood Transfusion: No (06/09/2016 12:57:Mike Oh RN) Med Hx Pulmonary (Asthma,TB): No (06/09/2016 12:57:Mike Oh RN) Med Hx Breast: No (06/09/2016 12:57:Mike Oh RN) Med Hx PRINCIPAL EXAMINER Surgery: No (06/09/2016 12:57:Mike Oh RN) Med Hx Hospitalization/Surgery: Yes (06/09/2016 12:57:Mike Oh RN) Med Hx Anesthetic Complications: No (06/09/2016 12:57:Mike Oh RN) Med Hx Abnormal Pap Smear: No (06/09/2016 12:57:Mike Oh RN) Other Medical Diseases: No (06/09/2016 12:57:Mike Oh RN) Med Hx Significant Family Hx: No (06/09/2016 12:57:Mike Oh RN) Details of Med/Surg Hx: Gallbladder 2004 Hx Depression, Frequent UTIs (06/09/2016 12:57:Mike Oh RN) INFECTIOUS HISTORY Inf Hx Gonorrhea: No (06/09/2016 12:57:Mike Oh RN) Inf Hx Chlamydia: No (06/09/2016 12:57:Mike Oh RN) Inf Hx Syphilis: No (06/09/2016 12:57:Mike Oh RN) Inf Hx HIV/AIDS: No (06/09/2016 12:57:Mike Oh RN) Inf Hx Human Papilloma Virus: No (06/09/2016 12:57:Mike Oh RN) Inf Hx Pt/Partner Genital Herpes: No (06/09/2016 12:57:Mike Oh RN) Inf Hx Tuberculosis/Exposure: No (06/09/2016 12:57:Mike Oh RN) Inf Hx Hepatitis B,C: No (06/09/2016 12:57:Mike Oh RN) Inf Hx Rash or Viral Illness: No (06/09/2016 12:57:Mike Oh RN) GENETIC HISTORY Gen Hx Age >=35 at ROD[place]: No (06/09/2016 12:57:Mike Oh RN) Gen Hx Thalassemia: No (06/09/2016 12:57:Mike Oh RN) Gen Hx Congenital Heart Defect: No (06/09/2016 12:57:Mike Oh RN) Gen Hx Neural Tube Defect: No (06/09/2016 12:57:Mike Oh RN) Gen Hx Down's Syndrome: No (06/09/2016 12:57:Mike Oh RN) Gen Hx Arya-Sachs: No (06/09/2016 12:57:Mike Oh RN) Gen Hx Jose C: No (06/09/2016 12:57:Mike Oh RN) Gen Hx Familial Dysautonomia: No (06/09/2016 12:57:Mike Oh RN) Gen Hx Sickle Cell Disease/Trait: No (06/09/2016 12:57:Mike Oh RN) Gen Hx Hemophilia/Blood Disorder: No (06/09/2016 12:57:Mike Oh RN) Gen Hx Muscular Dystrophy: No (06/09/2016 12:57:Mike Oh RN) Gen Hx Cystic Fibrosis: No (06/09/2016 12:57:Mike Oh RN) Gen Hx Huntingtons Chorea: No (06/09/2016 12:57:Mike Oh RN) Gen Hx Mental Retardation/Autism: No (06/09/2016 12:57:Mike Oh RN) Gen Hx Tested for Fragile X: No (06/09/2016 12:57:Mike Oh RN) Gen Hx Other Inher/Chromosomal: No (06/09/2016 12:57:Mike Oh RN) Gen Hx Maternal Metabolic DO: No (06/09/2016 12:57:Mike Oh RN) Gen Hx Pt Father or FOB Defect: No (06/09/2016 12:57:Mike Oh RN) Gen Hx Other Genetic History: No (06/09/2016 12:57:Mike Oh RN) Gen Hx Drugs/Meds since LMP: No (06/09/2016 12:57:Mike Oh RN)
== END 2016-07-14 13:37 | disposition home or self-care (01) | DRG 775 ==
LOC: LC 07:14 → LR 07:32 → 2S 13:50
PROVIDERS: ADMIT Obstetrics & Gynecology; ATTEND Obstetrics & Gynecology
PROC: 10E0XZZ Delivery of Products of Conception, External Approach (ICD-10-PCS; principal; 2016-07-12)
PROC: 3E0234Z Introduction of Serum, Toxoid and Vaccine into Muscle, Percutaneous Approach (ICD-10-PCS; 2016-07-14)
DX: O66.0 Obstructed labor due to shoulder dystocia (principal); O09.523 Supervision of elderly multigravida, third trimester; Z3A.37 37 weeks gestation of pregnancy; Z37.0 Single live birth; Z23 Encounter for immunization
CPT/HCPCS: 36415; 85025; 85027; 86592; 86850; 86900; 86901; 88307; 90715; 94760; C1726; J2590; J3490